=== PATIENT | female | born 1945 | race Caucasian/White ===

== ENCOUNTER 2017-03-25 07:03 | Day surgery (SDC) | payer BC ==
[2017-03-25] MEDS ORDERED: Lactated Ringers 1,000 ML IV SCH (07:45)
[2017-03-25] MEDS ORDERED: Propofol 200 MG/20 ML SDV IV ONE (10:00)
[2017-03-25 11:42] VITALS: BP 93/62
--- NOTE | 2017-03-25 13:14 | OR ---
DATE OF OPERATION: 03/25/2017 SURGEON: Castillo Wyatt MD PREOPERATIVE DIAGNOSIS: Cataract right eye. POSTOPERATIVE DIAGNOSIS: Same. OPERATION PERFORMED: Phacoemulsification of cataract right eye with placement of an Arriaga, model ZCB00, 22.0 diopter, foldable, posterior chamber intraocular lens. QUANTITATIVE SOFTWARE ENGINEER: None. DESCRIPTION OF PROCEDURE: Peribulbar anesthetic was performed using a mixture of 2% lidocaine with Wydase. The patient was prepped and draped in the usual fashion. A 3 mm fornix based conjunctival flap was performed at the 10 o'clock position. Hemostasis was obtained using diathermy, and a 2.8 mm grooved near clear corneal incision was then made. A stab incision was made into the anterior chamber at the 12 o'clock position and a second stab wound incision was made underlying the grooved near clear corneal incision. Viscoat was instilled into the anterior chamber, and a continuous tear capsulotomy was performed. Hydrodissection was accomplished with balanced salt solution, and the nucleus was removed in a divide and conquer fashion. The remaining cortical material was removed with the irrigation and aspiration unit. Viscoat was instilled into the anterior chamber, and an Arriaga, model ZCB00, 22.0 diopter, foldable, posterior chamber intraocular lens was placed into the capsular bag, the haptics being positioned at the 1 and 7 o'clock positions. The residual Viscoat was removed from the anterior chamber and the anterior chamber reformed with balanced salt solution. The wound was checked and noted to be watertight. The conjunctiva was secured in its original position with diathermy. Alphagan and Maxitrol Ointment were then placed into the patient's eye. The patient tolerated the procedure well and it was without complication. Elapsed phacoemulsification time was 37.6 seconds. Postoperative instructions as related to activities as well as medications were reviewed with the patient. The patient was instructed to return to see me on the day following surgery for the first postoperative check. The patient was also instructed to contact me prior to that time if the patient were to have any problems. ADDENDUM: Because of minor discomfort, 0.3 mL of mixture of phenylephrine, lidocaine, and balanced salt solution were instilled into the anterior chamber. This eliminated the discomfort that the patient was having. /[id number] DEG/MODL CC: JASON KIM MD MTDD
== END 2017-03-25 11:37 | disposition home or self-care (01) ==
LOC: FB.SDS 07:03
PROVIDERS: ATTEND Ophthalmology
DX: H26.9 Unspecified cataract (principal); I12.9 Hypertensive chronic kidney disease with stage 1 through stage 4 chronic kidney disease, or unspecified chronic kidney disease; N18.9 Chronic kidney disease, unspecified; K21.9 Gastro-esophageal reflux disease without esophagitis; E78.5 Hyperlipidemia, unspecified; E03.9 Hypothyroidism, unspecified; E66.01 Morbid (severe) obesity due to excess calories; J44.9 Chronic obstructive pulmonary disease, unspecified; Z90.49 Acquired absence of other specified parts of digestive tract; Z90.710 Acquired absence of both cervix and uterus; E83.42 Hypomagnesemia; Z68.44 Body mass index [BMI] 60.0-69.9, adult
CPT/HCPCS: 66984; 82962; A4217; C1780; J2704; J7120

== ENCOUNTER 2019-05-06 14:35 | Inpatient (IN) | payer BC ==
[2019-05-06] MEDS ORDERED: Albuterol/Ipratropium 3.0-0.5 MG/3 ML Neb Soln NEB ONE (15:21)
[2019-05-06] MEDS ORDERED: methylPREDNISolone Sodium Succinate 125 MG/2 ML SDV IVPUSH ONE (15:22)
[2019-05-06] MEDS: cefTRIAXone 1 GM Vial IVPUSH SCH (16:35)
[2019-05-06] MEDS: Sodium Chloride 0.9% 1,000 ML IV SCH (16:35)
[2019-05-06] MEDS ORDERED: Zolpidem 5 MG Tab PO PRN (17:05)
[2019-05-06] MEDS ORDERED: Docusate Sodium 100 MG Cap PO PRN (17:05)
[2019-05-06] MEDS ORDERED: Ondansetron 4 MG/2 ML SDV IV PRN (17:05)
[2019-05-06] MEDS ORDERED: Fluticasone Propionate Nasal Spray 16 GM Bottle NASBOTH PRN (17:17)
--- NOTE | 2019-05-06 17:39 | EDM.PDOC ---
ED HPI GENERAL MEDICAL PROBLEM - General Chief Complaint: Respiratory Problem Stated Complaint: sob Time Seen by Provider: 05/06/19 14:45 Source of Information: Reports: Patient History Limitations: Reports: No Limitations - History of Present Illness INITIAL COMMENTS - FREE TEXT/NARRATIVE: Patient presented to the ED via EMS because of dyspnea, coughing for 1 week which is progressively getting worse. The cough is mostly non-productive, denies having any fever or chills.There is no chest pain , abdominal pain,N/V changes in bowel movements or urinary symptoms. [facility] her surrounding is filthy and she is unkempt. - Related Data Allergies Allergy/AdvReac Type Severity Reaction Status Date / Time No Known Allergies Allergy Verified 05/06/19 15:32 Home Meds: Home Meds Albuterol [Ventolin HFA] 2 puff INH Q4H PRN 03/13/14 [History] Albuterol/Ipratropium [Combivent Respimat] 1 puff INH Q6H PRN 03/13/14 [History] Calcium Carbonate/Vitamin D3 [Oyster Shell Calcium-Vit D Tab] 1 tab PO DAILY 05/15 [History] Ferrous Sulfate [Feosol] 325 mg PO Q48H 03/13/14 [History] Fluticasone/Salmeterol [Advair 250-50] 1 puff INH BID 03/13/14 [History] Furosemide [Lasix] 40 mg PO DAILY 03/13/14 [History] Levothyroxine [Synthroid] 50 mcg PO SUTUWETHSA@0600 03/13/14 [History] Losartan Potassium [Cozaar] 100 mg PO DAILY 03/13/14 [History] Metolazone [Zaroxolyn] 5 mg PO Q48H PRN 03/13/14 [History] Montelukast [Singulair] 10 mg PO DAILY 03/13/14 [History] Multivitamin [Multi-Vitamin Daily] 1 tab PO DAILY 03/13/14 [History] Fonda-3 Fatty Acids [Fonda-3] 1,000 mg PO TID 03/13/14 [History] Potassium Chloride [Klor-Con M20] 20 meq PO BEDTIME 03/13/14 [History] Simvastatin [Zocor] 40 mg PO BEDTIME 03/13/14 [History] carvediloL [Coreg] 25 mg PO BID 03/13/14 [History] hydrALAZINE [Apresoline] 25 mg PO BID 03/13/14 [History] Allopurinol [Zyloprim] 300 mg PO DAILY 01/11/16 [History] Fluticasone Propionate [Flonase] 2 spray NS DAILY PRN 01/11/16 [History] Acetaminophen [Tylenol Extra Strength] 1,000 mg PO Q6H PRN 03/24/17 [History] Potassium Chloride [Klor-Con M20] 40 meq PO ACBREAKFAST 03/24/17 [History] Levothyroxine [Synthroid] 75 mcg PO MOFR@0600 05/06/19 [History] Magnesium Chloride [Slow-Mag] 71.5 mg PO BID 05/06/19 [History] raNITIdine HCl [Zantac] 150 mg PO DAILY 05/06/19 [History] Past Medical History HEENT History: Reports: Cataract, Impaired Vision Cardiovascular History: Reports: High Cholesterol, Hypertension Respiratory History: Reports: Asthma, Sleep Apnea Other Respiratory History: USES CPAP Gastrointestinal History: Reports: GERD Other Genitourinary History: CHRONIC KIDNEY DISEASE [employer]ER [employer] 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 [employer]ER [employer] 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 Musculoskeletal History: Reports: Fracture, Gout, Osteoarthritis, Other (See Below) Other Musculoskeletal History: RIGHT SHOULDER INJURY Neurological History: Reports: None Psychiatric History: Reports: None Endocrine/Metabolic History: Reports: Diabetes, Type II, Hypothyroidism, Other ( See Below) Other Endocrine/Metabolic History: OBESITY Hematologic History: Reports: Iron Deficiency Immunologic History: Reports: None Oncologic (Cancer) History: Reports: None Dermatologic History: Reports: Cellulitis - Infectious Disease History Infectious Disease History: Reports: Chicken Pox, Measles, Mumps - Past Surgical History Head Surgeries/Procedures: Reports: None HEENT Surgical History: Reports: Cataract Surgery Cardiovascular Surgical History: Reports: None Respiratory Surgical History: Reports: None GI Surgical History: Reports: Cholecystectomy, Colonoscopy, EGD Female Surgical History: Reports: Hysterectomy Endocrine Surgical History: Reports: None Neurological Surgical History: Reports: None Musculoskeletal Surgical History: Reports: Shoulder Surgery Other Musculoskeletal Surgeries/Procedures:: RIGHT SHOULDER REPLACEMENT. Oncologic Surgical History: Reports: None Dermatological Surgical History: Reports: None Social & Family History - Family History Family Medical History: Noncontributory Cardiac: Reports: Angina, Heart Failure Respiratory: Reports: COPD, Sleep Apnea : Reports: Renal Calculus Neurological: Reports: Migraines Endocrine/Metabolic: Reports: Hypothyroidism Dermatologic: Reports: Eczema - Caffeine Use Caffeine Use: Reports: Coffee, Tea Caffeine Use Comment: every other day - Living Situation & Occupation Living situation: Reports: , Other Occupation: Employed ED ROS GENERAL - Review of Systems Review Of Systems: See Below Constitutional: Reports: Weakness HEENT: Reports: Ear Discharge Respiratory: Reports: Shortness of Breath, Cough. Denies: Pleuritic Chest Pain Cardiovascular: Reports: Dyspnea on Exertion Endocrine: Reports: No Symptoms GI/Abdominal: Reports: No Symptoms : Reports: No Symptoms, Urinary Retention Skin: Reports: Erythema Neurological: Reports: Weakness ED EXAM, GENERAL - Physical Exam Exam: See Below Exam Limited By: No Limitations General Appearance: Alert, No Apparent Distress Eye Exam: Bilateral Eye: PERRL, Other (bilateral comjunctival injection and crsuty greenish eye discharge) Ear Exam: Bilateral Ear: TM normal Nose: Normal Inspection, Normal Mucosa Throat/Mouth: Normal Inspection, Normal Lips, Normal Teeth Head: Atraumatic, Normocephalic Neck: Normal Inspection, Supple, Non-Tender, Full Range of Motion Respiratory/Chest: Decreased Breath Sounds, Rhonchi, Wheezing. No: Crackles Cardiovascular: Normal Peripheral Pulses, Regular Rate, Rhythm, No Edema, No Gallop GI/Abdominal: Normal Bowel Sounds, Soft, Non-Tender, No Organomegaly, No Distention, No Abnormal Bruit Extremities: Normal Inspection, Normal Range of Motion, Non-Tender, No Pedal Edema, Slow Capillary Refill Neurological: Alert, Oriented, CN II-XII Intact, Normal Cognition Skin Exam: Warm, Erythema (RUE and Right thigh) Course - Vital Signs Text/Narrative:: Labs/EKG/CXR discussed with patient and family members with full understanding EKG-no acute changes CXR-see result Troponin,BNP,lactic acid are elevated most likely from the elevated creatinine and dehydration Recheck trop and BNP Gentle IVF hydration Rocephin IV which should cover her UTI,Pneumonia and cellulitis Case discussed with Dr Garcia Last Recorded V/S: Last Vital Signs Temp 37.3 C 05/06/19 14:35 Pulse Resp BP Pulse Ox 98 05/06/19 14:35 - Orders/Labs/Meds Orders: Active Orders 24 hr Category Date Time Status EKG Documentation Completion [RC] ASDIRECTED Care 05/06/19 15:21 Active RT Aerosol Therapy [RC] ASDIRECTED Care 05/06/19 15:21 Active Chest 1V Frontal [CR] Stat Exams 05/06/19 15:20 Taken CULTURE BLOOD [BC] Urgent Lab 05/06/19 14:59 Received CULTURE BLOOD [BC] Urgent Lab 05/06/19 15:19 Ordered CULTURE URINE [RM] Stat Lab 05/06/19 16:19 Received Sodium Chloride 0.9% [Normal Saline] 1,000 ml Med 05/06/19 16:30 Active IV ASDIRECTED Sodium Chloride 0.9% [Saline Flush] Med 05/06/19 15:17 Active 10 ml FLUSH ASDIRECTED PRN cefTRIAXone [Rocephin] Med 05/06/19 16:45 Active 1 gm IVPUSH Q24H Blood Culture x2 Reflex Set [OM.PC] Urgent Oth 05/06/19 15:17 Ordered Saline Lock Insert [OM.PC] Routine Oth 05/06/19 15:17 Ordered EKG 12 Lead [EK] Routine Ther 05/06/19 15:21 Ordered Medication Orders Acetaminophen (Tylenol Extra Strength) 1,000 mg PO Q6H PRN PRN Reason: Pain Albuterol (Proventil Neb Soln) 2.5 mg NEB Q2H PRN PRN Reason: Shortness Of Breath/wheezing Albuterol/Ipratropium (Duoneb 3.0-0.5 Mg/3 Ml) 3 ml NEB QIDRT JESSICA Carvedilol (Coreg) 25 mg PO BID [facility] Ceftriaxone Sodium (Rocephin) 1 gm IVPUSH Q24H [facility] Last Admin: 05/06/19 16:35 Dose: 1 gm Docusate Sodium (Colace) 100 mg PO BID PRN PRN Reason: Constipation Enoxaparin Sodium (Lovenox) 30 mg SUBCUT Q24H [facility] Ferrous Sulfate (Ferrous Sulfate) 325 mg PO Q48H [facility] Fluticasone Propionate (Flonase) gm NASBOTH DAILY PRN PRN Reason: Rhinitis Hydralazine HCl (Apresoline) 25 mg PO BID [facility] Sodium Chloride (Normal Saline) 1,000 mls @ 125 drops/hr IV ASDIRECTED [facility] Last Admin: 05/06/19 16:35 Dose: 125 drops/hr Levothyroxine Sodium (Synthroid) 50 mcg PO SUTUWETHSA@0600 JESSICA Levothyroxine Sodium (Synthroid) 75 mcg PO MOFR@0600 [facility] Montelukast Sodium (Singulair) 10 mg PO DAILY [facility] Multivitamins/Minerals/Vitamin C (Tab-A-Karli) 1 tab PO DAILY JESSICA Non-Formulary Medication (Calcium Carbonate/Vitamin D3 [Oyster Shell Calcium- Vit D Tab]) 1 tab PO DAILY JESSICA Non-Formulary Medication (Fluticasone/Salmeterol [Advair 250-50]) 1 puff INH BID JESSICA Non-Formulary Medication (Magnesium Chloride [Slow-Mag]) 71.5 mg PO BID JESSICA Non-Formulary Medication (Fonda-3 Fatty Acids [Fonda-3]) 1,000 mg PO TID JESSICA Non-Formulary Medication (Ranitidine Hcl [Zantac]) 150 mg PO DAILY [facility] Ondansetron HCl (Zofran) 4 mg IV Q4H PRN PRN Reason: Nausea/Vomiting Potassium Chloride (Klor-Con M20) 20 meq PO BEDTIME JESSICA Potassium Chloride (Klor-Con M20) 40 meq PO ACBREAKFAST JESSICA Simvastatin (Zocor) 40 mg PO BEDTIME [facility] Sodium Chloride (Saline Flush) 10 ml FLUSH ASDIRECTED PRN PRN Reason: Keep Vein Open Tobramycin (Tobramycin 0.3% Ophth Soln) 0 ml EYEBOTH QID JESSICA Zolpidem Tartrate (Ambien) 5 mg PO BEDTIME PRN PRN Reason: Sleep Labs: Laboratory Tests 05/06/19 05/06/19 05/06/19 Range/Units 14:59 14:59 14:59 WBC 13.8 H (4.5-12.0) X10-3/uL RBC 4.16 (3.23-5.20) x10(6)uL Hgb 12.6 (11.5-15.5) g/dL Hct 39.0 (30.0-51.3) % MCV 93.6 (80-96) fL MCH 30.3 (27.7-33.6) pg MCHC 32.4 (32.2-35.4) g/dL RDW 14.9 (11.5-15.5) % Plt Count 239 (125-369) X10(3)uL MPV 10.0 (7.4-10.4) fL Add Manual Diff Yes Neutrophils % (Manual) 86 H (46-82) % Band Neutrophils % 2 (0-6) % Lymphocytes % (Manual) 6 L (13-37) % Monocytes % (Manual) 6 (4-12) % Sodium 138 (135-145) mmol/L Potassium 3.2 L (3.5-5.3) mmol/L Chloride 99 L D (100-110) mmol/L Carbon Dioxide 30 (21-32) mmol/L BUN 67 H D (7-18) mg/dL Creatinine 3.0 H* (0.55-1.02) mg/dL Est Cr Clr Drug Dosing TNP Estimated GFR (MDRD) 15 L (>60) BUN/Creatinine Ratio 22.3 H (9-20) Glucose 161 H (80-116) mg/dL Lactic Acid (0.4-2.2) mmol/L Calcium 8.3 L (8.6-10.2) mg/dL Total Bilirubin 1.2 (0.1-1.3) mg/dL AST 197 H* (5-25) IU/L ALT 92 H (12-36) U/L Alkaline Phosphatase 156 H (56-112) IU/L Troponin I 0.607 H* (<0.017-0.056) ng/mL NT-Pro-B Natriuret Pep 83638 H* (<=450) pg/mL Total Protein 6.7 (6.0-8.0) g/dL Albumin 2.5 L (3.2-4.6) g/dL Globulin 4.2 g/dL Albumin/Globulin Ratio 0.6 Urine Color (YELLOW) Urine Appearance (CLEAR) Urine pH (5.0-6.5) Ur Specific Thayer (1.010-1.025) Urine Protein (NEGATIVE) mg/dL Urine Glucose (UA) (NORMAL) mg/dL Urine Ketones (NEGATIVE) mg/dL Urine Occult Blood (NEGATIVE) Urine Nitrite (NEGATIVE) Urine Bilirubin (NEGATIVE) Urine Urobilinogen (NEGATIVE) mg/dL Ur Leukocyte Esterase (NEGATIVE) Urine RBC (0-5) Urine WBC (0-5) Ur Squamous Epith Cells (NS,R,O) Urine Bacteria (NS) 05/06/19 05/06/19 Range/Units 14:59 16:19 WBC (4.5-12.0) X10-3/uL RBC (3.23-5.20) x10(6)uL Hgb (11.5-15.5) g/dL Hct (30.0-51.3) % MCV (80-96) fL MCH (27.7-33.6) pg MCHC (32.2-35.4) g/dL RDW (11.5-15.5) % Plt Count (125-369) X10(3)uL MPV (7.4-10.4) fL Add Manual Diff Neutrophils % (Manual) (46-82) % Band Neutrophils % (0-6) % Lymphocytes % (Manual) (13-37) % Monocytes % (Manual) (4-12) % Sodium (135-145) mmol/L Potassium (3.5-5.3) mmol/L Chloride (100-110) mmol/L Carbon Dioxide (21-32) mmol/L BUN (7-18) mg/dL Creatinine (0.55-1.02) mg/dL Est Cr Clr Drug Dosing Estimated GFR (MDRD) (>60) BUN/Creatinine Ratio (9-20) Glucose (80-116) mg/dL Lactic Acid 2.4 H (0.4-2.2) mmol/L Calcium (8.6-10.2) mg/dL Total Bilirubin (0.1-1.3) mg/dL AST (5-25) IU/L ALT (12-36) U/L Alkaline Phosphatase (56-112) IU/L Troponin I (<0.017-0.056) ng/mL NT-Pro-B Natriuret Pep (<=450) pg/mL Total Protein (6.0-8.0) g/dL Albumin (3.2-4.6) g/dL Globulin g/dL Albumin/Globulin Ratio Urine Color Emerson (YELLOW) Urine Appearance Slightly cloudy (CLEAR) Urine pH 5.0 (5.0-6.5) Ur Specific Thayer 1.020 (1.010-1.025) Urine Protein 30 H (NEGATIVE) mg/dL Urine Glucose (UA) Normal (NORMAL) mg/dL Urine Ketones 15 H (NEGATIVE) mg/dL Urine Occult Blood Large H (NEGATIVE) Urine Nitrite Negative (NEGATIVE) Urine Bilirubin Small H (NEGATIVE) Urine Urobilinogen 4 H (NEGATIVE) mg/dL Ur Leukocyte Esterase Large H (NEGATIVE) Urine RBC 30-40 H (0-5) Urine WBC 30-40 H (0-5) Ur Squamous Epith Cells Few H (NS,R,O) Urine Bacteria Many H (NS) Meds: Medications Generic Name Dose Route Start Last Admin Trade Name Freq PRN Reason Stop Dose Admin Acetaminophen 1,000 mg 05/06/19 17:17 Tylenol Extra Strength PO Q6H PRN Pain Albuterol 2.5 mg 05/06/19 17:05 Proventil Neb Soln NEB Q2H PRN Shortness Of Breath/wheezing Albuterol/Ipratropium 3 ml 05/06/19 21:00 Duoneb 3.0-0.5 Mg/3 Ml NEB QIDRT JESSICA Carvedilol 25 mg 05/06/19 21:00 Coreg PO BID [facility] Ceftriaxone Sodium 1 gm 05/06/19 16:45 05/06/19 16:35 Rocephin IVPUSH 1 gm Q24H JESSICA Administration Docusate Sodium 100 mg 05/06/19 17:05 Colace PO BID PRN Constipation Enoxaparin Sodium 30 mg 05/06/19 18:00 Lovenox SUBCUT Q24H [facility] Ferrous Sulfate 325 mg 05/06/19 17:30 Ferrous Sulfate PO Q48H [facility] Fluticasone Propionate gm 05/06/19 17:17 Flonase NASBOTH DAILY PRN Rhinitis Hydralazine HCl 25 mg 05/06/19 21:00 Apresoline PO BID [facility] Sodium Chloride 1,000 mls @ 125 drops/hr 05/06/19 16:30 05/06/19 16:35 Normal Saline IV 125 drops/hr ASDIRECTED JESSICA Administration Levothyroxine Sodium 50 mcg 05/08/19 06:00 Synthroid PO SUTUWETHSA@0600 JESSICA Levothyroxine Sodium 75 mcg 05/07/19 06:00 Synthroid PO MOFR@0600 JESSICA Montelukast Sodium 10 mg 05/07/19 09:00 Singulair PO DAILY [facility] Multivitamins/Minerals/Vitamin C 1 tab 05/07/19 09:00 Tab-A-Karli PO DAILY JESSICA Non-Formulary Medication 1 tab 05/06/19 17:30 Calcium Carbonate/Vitamin D3 [Oyster Shell Calcium-Vit D Tab] PO DAILY JESSICA Non-Formulary Medication 1 puff 05/06/19 21:00 Fluticasone/Salmeterol [Advair 250-50] INH BID JESSICA Non-Formulary Medication 71.5 mg 05/06/19 21:00 Magnesium Chloride [Slow-Mag] PO BID JESSICA Non-Formulary Medication 1,000 mg 05/06/19 21:00 Fonda-3 Fatty Acids [Fonda-3] PO TID JESSICA Non-Formulary Medication 150 mg 05/07/19 09:00 Ranitidine Hcl [Zantac] PO DAILY JESSICA Ondansetron HCl 4 mg 05/06/19 17:05 Zofran IV Q4H PRN Nausea/Vomiting Potassium Chloride 20 meq 05/06/19 21:00 Klor-Con M20 PO BEDTIME JESSICA Potassium Chloride 40 meq 05/07/19 07:30 Klor-Con M20 PO ACBREAKFAST JESSICA Simvastatin 40 mg 05/06/19 21:00 Zocor PO BEDTIME JESSICA Sodium Chloride 10 ml 05/06/19 15:17 Saline Flush FLUSH ASDIRECTED PRN Keep Vein Open Tobramycin 0 ml 05/06/19 21:00 Tobramycin 0.3% Ophth Soln EYEBOTH QID JESSICA Zolpidem Tartrate 5 mg 05/06/19 17:05 Ambien PO BEDTIME PRN Sleep Discontinued Medications Generic Name Dose Route Start Last Admin Trade Name Freq PRN Reason Stop Dose Admin Albuterol/Ipratropium 6 ml 05/06/19 15:21 05/06/19 15:36 Duoneb 3.0-0.5 Mg/3 Ml NEB 05/06/19 15:22 6 ml ONETIME ONE Administration Methylprednisolone Sodium Succinate 125 mg 05/06/19 15:22 05/06/19 15:36 Solu-Medrol IVPUSH 05/06/19 15:23 125 mg ONETIME ONE Administration Departure - Departure Time of Disposition: 14:35 Disposition: Admitted As Inpatient 65 Condition: Fair Clinical Impression: Dehydration, VENKAT (acute kidney injury), UTI (urinary tract infection), Pneumonia, COPD exacerbation, Hypokalemia, Elevated troponin - Discharge Information - My Orders Last 24 Hours: My Active Orders 05/06/19 14:59 CULTURE BLOOD [BC] Urgent 05/06/19 15:17 Sodium Chloride 0.9% [Saline Flush] 10 ml FLUSH ASDIRECTED PRN Blood Culture x2 Reflex Set [OM.PC] Urgent Saline Lock Insert [OM.PC] Routine 05/06/19 15:19 CULTURE BLOOD [BC] Urgent 05/06/19 15:20 Chest 1V Frontal [CR] Stat 05/06/19 15:21 EKG Documentation Completion [RC] ASDIRECTED RT Aerosol Therapy [RC] ASDIRECTED EKG 12 Lead [EK] Routine 05/06/19 16:19 CULTURE URINE [RM] Stat 05/06/19 16:30 Sodium Chloride 0.9% [Normal Saline] 1,000 ml IV ASDIRECTED 05/06/19 16:45 cefTRIAXone [Rocephin] 1 gm IVPUSH Q24H - Assessment/Plan Last 24 Hours: My Active Orders 05/06/19 14:59 CULTURE BLOOD [BC] Urgent 05/06/19 15:17 Sodium Chloride 0.9% [Saline Flush] 10 ml FLUSH ASDIRECTED PRN Blood Culture x2 Reflex Set [OM.PC] Urgent Saline Lock Insert [OM.PC] Routine 05/06/19 15:19 CULTURE BLOOD [BC] Urgent 05/06/19 15:20 Chest 1V Frontal [CR] Stat 05/06/19 15:21 EKG Documentation Completion [RC] ASDIRECTED RT Aerosol Therapy [RC] ASDIRECTED EKG 12 Lead [EK] Routine 05/06/19 16:19 CULTURE URINE [RM] Stat 05/06/19 16:30 Sodium Chloride 0.9% [Normal Saline] 1,000 ml IV ASDIRECTED 05/06/19 16:45 cefTRIAXone [Rocephin] 1 gm IVPUSH Q24H
[2019-05-06] MEDS ORDERED: Calcium Carbonate 500 MG Tab.Chew PO SCH (17:45)
[2019-05-06] MEDS ORDERED: Enoxaparin 30 MG/0.3 ML Syringe SUBCUT SCH (18:00)
[2019-05-06] MEDS ORDERED: Azithromycin 500 MG in Sodium Chloride 0.9% 250 ML IV ONE (18:46)
--- NOTE | 2019-05-06 18:55 | PCM.HP.2 ---
H&P History of Present Illness - General Date of Service: 05/06/19 Admit Problem/Dx: Admission Diagnosis/Problem Admission Diagnosis/Problem COPD with acute lower respiratory infection Source of Information: Patient, Family History Limitations: Reports: No Limitations - History of Present Illness Initial Comments - Free Text/Narative: This is a 74-year-old female patient that lives with her son. She's had one week history of coughing is progressive and became more short of breath. The cough is mostly nonproductive. She denies fevers or chills or chest pain. No diarrhea or dysuria, pyuria or hematuria. She also week she that she could got a bed. Her sons had it carotid bed and call him spring here. She has history of asthma, peripheral edema. She denies history of smoking but did live with a smoker. - Related Data Allergies/Adverse Reactions: Allergies Allergy/AdvReac Type Severity Reaction Status Date / Time No Known Allergies Allergy Verified 05/06/19 15:32 Home Medications: Home Meds Albuterol [Ventolin HFA] 2 puff INH Q4H PRN 03/13/14 [History] Albuterol/Ipratropium [Combivent Respimat] 1 puff INH Q6H PRN 03/13/14 [History] Calcium Carbonate/Vitamin D3 [Oyster Shell Calcium-Vit D Tab] 1 tab PO DAILY 05/15 [History] Ferrous Sulfate [Feosol] 325 mg PO Q48H 03/13/14 [History] Fluticasone/Salmeterol [Advair 250-50] 1 puff INH BID 03/13/14 [History] Furosemide [Lasix] 40 mg PO DAILY 03/13/14 [History] Levothyroxine [Synthroid] 50 mcg PO SUTUWETHSA@0600 03/13/14 [History] Losartan Potassium [Cozaar] 100 mg PO DAILY 03/13/14 [History] Metolazone [Zaroxolyn] 5 mg PO Q48H PRN 03/13/14 [History] Montelukast [Singulair] 10 mg PO DAILY 03/13/14 [History] Multivitamin [Multi-Vitamin Daily] 1 tab PO DAILY 03/13/14 [History] Ollie-3 Fatty Acids [Ollie-3] 1,000 mg PO TID 03/13/14 [History] Potassium Chloride [Klor-Con M20] 20 meq PO BEDTIME 03/13/14 [History] Simvastatin [Zocor] 40 mg PO BEDTIME 03/13/14 [History] carvediloL [Coreg] 25 mg PO BID 03/13/14 [History] hydrALAZINE [Apresoline] 25 mg PO BID 03/13/14 [History] Allopurinol [Zyloprim] 300 mg PO DAILY 01/11/16 [History] Fluticasone Propionate [Flonase] 2 spray NS DAILY PRN 01/11/16 [History] Acetaminophen [Tylenol Extra Strength] 1,000 mg PO Q6H PRN 03/24/17 [History] Potassium Chloride [Klor-Con M20] 40 meq PO ACBREAKFAST 03/24/17 [History] Levothyroxine [Synthroid] 75 mcg PO MOFR@0600 05/06/19 [History] Magnesium Chloride [Slow-Mag] 71.5 mg PO BID 05/06/19 [History] raNITIdine HCl [Zantac] 150 mg PO DAILY 05/06/19 [History] Past Medical History HEENT History: Reports: Cataract, Impaired Vision Cardiovascular History: Reports: High Cholesterol, Hypertension Respiratory History: Reports: Asthma, Sleep Apnea Other Respiratory History: USES CPAP Gastrointestinal History: Reports: GERD Other Genitourinary History: CHRONIC KIDNEY DISEASE 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: Other OB/BYN History: VII PARA VII Musculoskeletal History: Reports: Fracture, Gout, Osteoarthritis, Other (See Below) Other Musculoskeletal History: RIGHT SHOULDER INJURY Neurological History: Reports: None Psychiatric History: Reports: None Endocrine/Metabolic History: Reports: Diabetes, Type II, Hypothyroidism, Other ( See Below) Other Endocrine/Metabolic History: OBESITY Hematologic History: Reports: Iron Deficiency Immunologic History: Reports: None Oncologic (Cancer) History: Reports: None Dermatologic History: Reports: Cellulitis - Infectious Disease History Infectious Disease History: Reports: Chicken Pox, Measles, Mumps - Past Surgical History Head Surgeries/Procedures: Reports: None HEENT Surgical History: Reports: Cataract Surgery Cardiovascular Surgical History: Reports: None Respiratory Surgical History: Reports: None GI Surgical History: Reports: Cholecystectomy, Colonoscopy, EGD Female Surgical History: Reports: Hysterectomy Endocrine Surgical History: Reports: None Neurological Surgical History: Reports: None Musculoskeletal Surgical History: Reports: Shoulder Surgery Other Musculoskeletal Surgeries/Procedures:: RIGHT SHOULDER REPLACEMENT. Oncologic Surgical History: Reports: None Dermatological Surgical History: Reports: None Social & Family History - Family History Family Medical History: Noncontributory Cardiac: Reports: Angina, Heart Failure Respiratory: Reports: COPD, Sleep Apnea : Reports: Renal Calculus Neurological: Reports: Migraines Endocrine/Metabolic: Reports: Hypothyroidism Dermatologic: Reports: Eczema - Caffeine Use Caffeine Use: Reports: Coffee, Tea Caffeine Use Comment: every other day - Living Situation & Occupation Living situation: Reports: , Other Occupation: Employed H&P Review of Systems - Review of Systems: Review Of Systems: See Below General: Reports: Weakness. Denies: Fever, Chills HEENT: Reports: No Symptoms Pulmonary: Reports: Shortness of Breath, Wheezing, Cough Cardiovascular: Denies: Chest Pain, Edema Gastrointestinal: Reports: No Symptoms Genitourinary: Reports: No Symptoms Musculoskeletal: Reports: No Symptoms Skin: Reports: Rash Psychiatric: Reports: No Symptoms Neurological: Reports: No Symptoms Hematologic/Lymphatic: Reports: No Symptoms Immunologic: Reports: No Symptoms Exam - Exam Exam: See Below - Vital Signs Vital Signs: Last Vital Signs Temp 99.2 F 05/06/19 14:35 Pulse Resp BP Pulse Ox 92 L 05/06/19 17:25 Weight: 345 lb - Exam General: Alert, Oriented, Cooperative HEENT: Hearing Intact, Mucosa Moist & [place], Posterior Pharynx Clear, TMs Clear Neck: Supple, Trachea Midline Lungs: Normal Respiratory Effort, Crackles, Wheezing Cardiovascular: Regular Rate, Regular Rhythm. No: Systolic Murmur GI/Abdominal Exam: Normal Bowel Sounds, Soft, Non-Tender, No Distention Extremities: Normal Inspection, No Pedal Edema Skin: Rash (Right upper extremity with warm bullae) Neuro Extensive - Mental Status: Alert, Oriented x3, Normal Cognition Psychiatric: Alert, Normal Affect, Normal Mood - Patient Data Lab Results Last 24 hrs: Laboratory Results - last 24 hr 05/06/19 05/06/19 05/06/19 Range/Units 14:59 14:59 14:59 WBC 13.8 H (4.5-12.0) X10-3/uL RBC 4.16 (3.23-5.20) x10(6)uL Hgb 12.6 (11.5-15.5) g/dL Hct 39.0 (30.0-51.3) % MCV 93.6 (80-96) fL MCH 30.3 (27.7-33.6) pg MCHC 32.4 (32.2-35.4) g/dL RDW 14.9 (11.5-15.5) % Plt Count 239 (125-369) X10(3)uL MPV 10.0 (7.4-10.4) fL Add Manual Diff Yes Neutrophils % (Manual) 86 H (46-82) % Band Neutrophils % 2 (0-6) % Lymphocytes % (Manual) 6 L (13-37) % Monocytes % (Manual) 6 (4-12) % Sodium 138 (135-145) mmol/L Potassium 3.2 L (3.5-5.3) mmol/L Chloride 99 L D (100-110) mmol/L Carbon Dioxide 30 (21-32) mmol/L BUN 67 H D (7-18) mg/dL Creatinine 3.0 H* (0.55-1.02) mg/dL Est Cr Clr Drug Dosing TNP Estimated GFR (MDRD) 15 L (>60) BUN/Creatinine Ratio 22.3 H (9-20) Glucose 161 H (80-116) mg/dL Lactic Acid (0.4-2.2) mmol/L Calcium 8.3 L (8.6-10.2) mg/dL Total Bilirubin 1.2 (0.1-1.3) mg/dL AST 197 H* (5-25) IU/L ALT 92 H (12-36) U/L Alkaline Phosphatase 156 H (56-112) IU/L Troponin I 0.607 H* (<0.017-0.056) ng/mL NT-Pro-B Natriuret Pep 18940 H* (<=450) pg/mL Total Protein 6.7 (6.0-8.0) g/dL Albumin 2.5 L (3.2-4.6) g/dL Globulin 4.2 g/dL Albumin/Globulin Ratio 0.6 Urine Color (YELLOW) Urine Appearance (CLEAR) Urine pH (5.0-6.5) Ur Specific [place] (1.010-1.025) Urine Protein (NEGATIVE) mg/dL Urine Glucose (UA) (NORMAL) mg/dL Urine Ketones (NEGATIVE) mg/dL Urine Occult Blood (NEGATIVE) Urine Nitrite (NEGATIVE) Urine Bilirubin (NEGATIVE) Urine Urobilinogen (NEGATIVE) mg/dL Ur Leukocyte Esterase (NEGATIVE) Urine RBC (0-5) Urine WBC (0-5) Ur Squamous Epith Cells (NS,R,O) Urine Bacteria (NS) 05/06/19 05/06/19 Range/Units 14:59 16:19 WBC (4.5-12.0) X10-3/uL RBC (3.23-5.20) x10(6)uL Hgb (11.5-15.5) g/dL Hct (30.0-51.3) % MCV (80-96) fL MCH (27.7-33.6) pg MCHC (32.2-35.4) g/dL RDW (11.5-15.5) % Plt Count (125-369) X10(3)uL MPV (7.4-10.4) fL Add Manual Diff Neutrophils % (Manual) (46-82) % Band Neutrophils % (0-6) % Lymphocytes % (Manual) (13-37) % Monocytes % (Manual) (4-12) % Sodium (135-145) mmol/L Potassium (3.5-5.3) mmol/L Chloride (100-110) mmol/L Carbon Dioxide (21-32) mmol/L BUN (7-18) mg/dL Creatinine (0.55-1.02) mg/dL Est Cr Clr Drug Dosing Estimated GFR (MDRD) (>60) BUN/Creatinine Ratio (9-20) Glucose (80-116) mg/dL Lactic Acid 2.4 H (0.4-2.2) mmol/L Calcium (8.6-10.2) mg/dL Total Bilirubin (0.1-1.3) mg/dL AST (5-25) IU/L ALT (12-36) U/L Alkaline Phosphatase (56-112) IU/L Troponin I (<0.017-0.056) ng/mL NT-Pro-B Natriuret Pep (<=450) pg/mL Total Protein (6.0-8.0) g/dL Albumin (3.2-4.6) g/dL Globulin g/dL Albumin/Globulin Ratio Urine Color [place] (YELLOW) Urine Appearance Slightly cloudy (CLEAR) Urine pH 5.0 (5.0-6.5) Ur Specific [place] 1.020 (1.010-1.025) Urine Protein 30 H (NEGATIVE) mg/dL Urine Glucose (UA) Normal (NORMAL) mg/dL Urine Ketones 15 H (NEGATIVE) mg/dL Urine Occult Blood Large H (NEGATIVE) Urine Nitrite Negative (NEGATIVE) Urine Bilirubin Small H (NEGATIVE) Urine Urobilinogen 4 H (NEGATIVE) mg/dL Ur Leukocyte Esterase Large H (NEGATIVE) Urine RBC 30-40 H (0-5) Urine WBC 30-40 H (0-5) Ur Squamous Epith Cells Few H (NS,R,O) Urine Bacteria Many H (NS) Result Diagrams: 05/06/19 14:59 05/06/19 14:59 - Problem List (1) Rash SNOMED Code(s): 942924075 ICD Code: R21 - RASH AND OTHER NONSPECIFIC SKIN ERUPTION Status: Acute Current Visit: Yes (2) Palliative care status SNOMED Code(s): 363717964 ICD Code: Z51.5 - ENCOUNTER FOR PALLIATIVE CARE Status: Acute Current Visit: Yes (3) VENKAT (acute kidney injury) SNOMED Code(s): 23585069, 94149515 ICD Code: N17.9 - ACUTE KIDNEY FAILURE, UNSPECIFIED Status: Acute Current Visit: Yes (4) COPD exacerbation SNOMED Code(s): 474600252 ICD Code: J44.1 - CHRONIC OBSTRUCTIVE PULMONARY DISEASE W (ACUTE) EXACERBATION Status: Acute Current Visit: Yes (5) Dehydration SNOMED Code(s): 70042344 ICD Code: E86.0 - DEHYDRATION Status: Acute Current Visit: Yes (6) Elevated troponin SNOMED Code(s): 921779382, 636357374, 400673951 ICD Code: R79.89 - OTHER SPECIFIED ABNORMAL FINDINGS OF BLOOD CHEMISTRY Status: Acute Current Visit: Yes (7) Hypokalemia SNOMED Code(s): 70016520 ICD Code: E87.6 - HYPOKALEMIA Status: Acute Current Visit: Yes (8) Pneumonia SNOMED Code(s): 858120062 ICD Code: J18.9 - PNEUMONIA, UNSPECIFIED ORGANISM Status: Acute Current Visit: Yes (9) UTI (urinary tract infection) SNOMED Code(s): 05008437 ICD Code: N39.0 - URINARY TRACT INFECTION, SITE NOT SPECIFIED Status: Acute Current Visit: Yes Problem List Initiated/Reviewed/Updated: Yes Orders Last 24hrs: Active Orders 24 hr Category Date Time Status Patient Status [ADT] Routine ADT 05/06/19 17:05 Active EKG Documentation Completion [RC] ASDIRECTED Care 05/06/19 15:21 Active Height and Weight [RC] DAILY Care 05/06/19 17:05 Active Intake and Output [RC] QSHIFT Care 05/06/19 17:09 Active Oxygen Therapy [RC] PRN Care 05/06/19 17:05 Active Pulse Oximetry [RC] CONTINUOUS Care 05/06/19 17:09 Active RT Aerosol Therapy [RC] ASDIRECTED Care 05/06/19 15:21 Active RT Aerosol Therapy [RC] ASDIRECTED Care 05/06/19 17:14 Active Up With Assistance [RC] ASDIRECTED Care 05/06/19 17:05 Active VTE/DVT Education [RC] Per Unit Routine Care 05/06/19 17:05 Active Vital Signs [RC] Q4H Care 05/06/19 17:05 Active Consult to Occupational Therapy [OT Evaluation and Cons 05/06/19 18:48 Ordered Treatment] [CONS] Routine Consult to Physical Therapy [PT Evaluation and Cons 05/06/19 18:48 Ordered Treatment] [CONS] Routine Heart Healthy Diet [DIET] Diet 05/06/19 Dinner Ordered Chest 1V Frontal [CR] Stat Exams 05/06/19 15:20 Taken BASIC METABOLIC PANEL,BMP [CHEM] AM Lab 05/07/19 05:11 Ordered CBC W/O DIFF,HEMOGRAM [HEME] AM Lab 05/07/19 05:11 Ordered CULTURE BLOOD [BC] Urgent Lab 05/06/19 14:59 Received CULTURE BLOOD [BC] Urgent Lab 05/06/19 15:19 Ordered CULTURE URINE [RM] Stat Lab 05/06/19 16:19 Received PRO B-TYPE NATRIUR PEPT,BNPPRO [CHEM] Routine Lab 05/07/19 05:30 Ordered TROPONIN I [CHEM] Stat Lab 05/06/19 23:00 Ordered TROPONIN I [CHEM] Stat Lab 05/07/19 05:30 Ordered Acetaminophen [Tylenol Extra Strength] Med 05/06/19 17:17 Active 1,000 mg PO Q6H PRN Albuterol [Proventil Neb Soln] Med 05/06/19 17:05 Active 2.5 mg NEB Q2H PRN Albuterol/Ipratropium [DuoNeb 3.0-0.5 MG/3 ML] Med 05/06/19 21:00 Active 3 ml NEB QIDRT Azithromycin [Zithromax] 250 mg Med 05/06/19 19:00 Ordered Sodium Chloride 0.9% [Normal Saline] 250 ml IV Q24H Azithromycin [Zithromax] 500 mg Med 05/06/19 18:46 Ordered Sodium Chloride 0.9% [Normal Saline (AdvBag)] 250 ml IV ONETIME Calcium Carbonate [Tums] Med 05/06/19 17:45 Active 500 mg PO DAILY Docusate Sodium [Colace] Med 05/06/19 17:05 Active 100 mg PO BID PRN Enoxaparin [Lovenox] Med 05/06/19 18:00 Active 30 mg SUBCUT Q24H Famotidine [Pepcid] Med 05/07/19 09:00 Active 20 mg PO DAILY Ferrous Sulfate Med 05/06/19 17:30 Pending 325 mg PO Q48H Fish Oil/Ollie-3 Fatty Acids [Fish Oil] Med 05/06/19 21:00 Active 1 gm PO TID Fluticasone Propionate [Flonase] Med 05/06/19 17:17 Active 0 gm NASBOTH DAILY PRN Levothyroxine [Synthroid] Med 05/08/19 06:00 Active 50 mcg PO SUTUWETHSA@0600 Levothyroxine [Synthroid] Med 05/07/19 06:00 Active 75 mcg PO MOFR@0600 Magnesium Chloride [Slow-Mag] Med 05/06/19 21:00 Pending 71.5 mg PO BID Mometasone/Formoterol [Dulera 200-5 MCG] Med 05/06/19 21:00 Active 0 puff IH BID Montelukast [Singulair] Med 05/07/19 09:00 Active 10 mg PO DAILY Multivitamins [Tab-A-Karli] Med 05/07/19 09:00 Active 1 tab PO DAILY Ondansetron [Zofran] Med 05/06/19 17:05 Active 4 mg IV Q4H PRN Potassium Chloride [Klor-Con M20] Med 05/06/19 21:00 Active 20 meq PO BEDTIME Potassium Chloride [Klor-Con M20] Med 05/07/19 07:30 Active 40 meq PO ACBREAKFAST Simvastatin [Zocor] Med 05/06/19 21:00 Active 40 mg PO BEDTIME Sodium Chloride 0.9% [Normal Saline] 1,000 ml Med 05/06/19 16:30 Active IV ASDIRECTED Sodium Chloride 0.9% [Saline Flush] Med 05/06/19 15:17 Active 10 ml FLUSH ASDIRECTED PRN Tobramycin 0.3% [Tobramycin 0.3% Ophth Soln] Med 05/06/19 21:00 Active See Dose Instructions EYEBOTH QID Zolpidem [Ambien] Med 05/06/19 17:05 Active 5 mg PO BEDTIME PRN carvediloL [Coreg] Med 05/06/19 21:00 Active 25 mg PO BID cefTRIAXone [Rocephin] Med 05/06/19 16:45 Active 1 gm IVPUSH Q24H hydrALAZINE [Apresoline] Med 05/06/19 21:00 Active 25 mg PO BID Blood Culture x2 Reflex Set [OM.PC] Urgent Oth 05/06/19 15:17 Ordered Saline Lock Insert [OM.PC] Routine Oth 05/06/19 15:17 Ordered Resuscitation Status Routine Resus Stat 05/06/19 17:05 Ordered EKG 12 Lead [EK] Routine Ther 05/06/19 15:21 Ordered Medication Orders Acetaminophen (Tylenol Extra Strength) 1,000 mg PO Q6H PRN PRN Reason: Pain Albuterol (Proventil Neb Soln) 2.5 mg NEB Q2H PRN PRN Reason: Shortness Of Breath/wheezing Albuterol/Ipratropium (Duoneb 3.0-0.5 Mg/3 Ml) 3 ml NEB QIDRT [facility] Calcium Carbonate/Glycine (Tums) 500 mg PO DAILY [facility] Last Admin: 05/06/19 18:32 Dose: 500 mg Carvedilol (Coreg) 25 mg PO BID [facility] Ceftriaxone Sodium (Rocephin) 1 gm IVPUSH Q24H [facility] Last Admin: 05/06/19 16:35 Dose: 1 gm Docusate Sodium (Colace) 100 mg PO BID PRN PRN Reason: Constipation Enoxaparin Sodium (Lovenox) 30 mg SUBCUT Q24H [facility] Last Admin: 05/06/19 18:32 Dose: 30 mg Famotidine (Pepcid) 20 mg PO DAILY [facility] Ferrous Sulfate (Ferrous Sulfate) 325 mg PO Q48H [facility] Fish Oil (Fish Oil) 1 gm PO TID [facility] Fluticasone Propionate (Flonase) 0 gm NASBOTH DAILY PRN PRN Reason: Rhinitis Hydralazine HCl (Apresoline) 25 mg PO BID [facility] Sodium Chloride (Normal Saline) 1,000 mls @ 125 drops/hr IV ASDIRECTED [facility] Last Admin: 05/06/19 16:35 Dose: 125 drops/hr Azithromycin 500 mg/ Sodium (Chloride) 250 mls @ 250 mls/hr IV ONETIME ONE Stop: 05/06/19 19:45 Azithromycin 250 mg/ Sodium (Chloride) 250 mls @ 250 mls/hr IV Q24H [facility] Stop: 05/09/19 19:59 Levothyroxine Sodium (Synthroid) 50 mcg PO SUTUWETHSA@0600 [facility] Levothyroxine Sodium (Synthroid) 75 mcg PO MOFR@0600 [facility] Mometasone Furoate/Formoterol Fumar (Dulera 200-5 Mcg) 0 puff IH BID [facility] Montelukast Sodium (Singulair) 10 mg PO DAILY [facility] Multivitamins/Minerals/Vitamin C (Tab-A-Karli) 1 tab PO DAILY [facility] Non-Formulary Medication (Magnesium Chloride [Slow-Mag]) 71.5 mg PO BID [facility] Ondansetron HCl (Zofran) 4 mg IV Q4H PRN PRN Reason: Nausea/Vomiting Potassium Chloride (Klor-Con M20) 20 meq PO BEDTIME [facility] Potassium Chloride (Klor-Con M20) 40 meq PO ACBREAKFAST [facility] Simvastatin (Zocor) 40 mg PO BEDTIME [facility] Sodium Chloride (Saline Flush) 10 ml FLUSH ASDIRECTED PRN PRN Reason: Keep Vein Open Tobramycin (Tobramycin 0.3% Ophth Soln) 0 ml EYEBOTH QID [facility] Stop: 05/13/19 17:01 Zolpidem Tartrate (Ambien) 5 mg PO BEDTIME PRN PRN Reason: Sleep Assessment/Plan Comment:: 1. Admit to inpatient 2. Lovenox for VTE prophylaxis 3. Diabetic diet and Accu-Cheks 4. By mouth potassium 5. Recheck troponin in the morning 6. Recheck labs in the morning 7. Rocephin/Zithromax IV and blood cultures 8. PT/OT and up with assist 9. nutrition services assistant to see regards to living conditions 10. IV fluids for the dehydration and the acute kidney injury upon chronic renal failure
[2019-05-06] MEDS: hydrALAZINE 25 MG Tab PO SCH (20:08)
[2019-05-06] MEDS: Carvedilol 25 MG Tab PO SCH (20:08)
[2019-05-06] MEDS: Simvastatin 40 MG Tab PO SCH (20:09)
[2019-05-06] MEDS: Potassium Chloride 20 MEQ Tab.ER PO SCH (20:09)
[2019-05-06] MEDS: Formoterol/Mometasone 200-5 MCG 8.8 GM Inhaler IH SCH (20:21)
[2019-05-06] MEDS: Fish Oil/Omega-3 Fatty Acids 1 Gm Cap PO SCH (20:22)
[2019-05-06] MEDS: Albuterol/Ipratropium 3.0-0.5 MG/3 ML Neb Soln NEB SCH (20:22)
[2019-05-06] MEDS: Tobramycin 0.3% Ophth Drops 5 ML Bottle EYEBOTH SCH (20:22)
[2019-05-07] MEDS: Sodium Chloride 0.9% 1,000 ML IV SCH (01:25)
[2019-05-07] MEDS: Albuterol 0.083% 2.5 MG/3 ML Neb Soln NEB PRN ×2 (02:51→08:26)
[2019-05-07] MEDS ORDERED: Levothyroxine 50 MCG Tab PO SCH (06:00)
[2019-05-07] MEDS: Albuterol/Ipratropium 3.0-0.5 MG/3 ML Neb Soln NEB SCH ×4 (06:20→20:26)
[2019-05-07] MEDS: Potassium Chloride 20 MEQ Tab.ER PO SCH ×2 (06:38→20:27)
[2019-05-07] MEDS: Tobramycin 0.3% Ophth Drops 5 ML Bottle EYEBOTH SCH ×4 (08:13→20:28)
[2019-05-07] MEDS: Formoterol/Mometasone 200-5 MCG 8.8 GM Inhaler IH SCH ×2 (08:13→20:26)
[2019-05-07] MEDS: Montelukast 10 MG Tab PO SCH (08:31)
[2019-05-07] MEDS: Carvedilol 25 MG Tab PO SCH ×2 (08:31→20:25)
[2019-05-07] MEDS: Fish Oil/Omega-3 Fatty Acids 1 Gm Cap PO SCH ×3 (08:32→20:26)
[2019-05-07] MEDS: hydrALAZINE 25 MG Tab PO SCH ×2 (08:32→20:25)
[2019-05-07] MEDS: Multivitamin Tab PO SCH (08:32)
[2019-05-07] MEDS: Famotidine 20 MG Tab PO SCH (08:33)
[2019-05-07] MEDS: Calcium Carbonate 500 MG Tablet PO SCH (08:33)
[2019-05-07] MEDS ORDERED: Clopidogrel 75 MG Tab PO ONE (08:51)
--- NOTE | 2019-05-07 08:59 | PCM.PN ---
- General Info Date of Service: 05/07/19 Subjective Update: Isa admitted for shortness of breath yesterday. This morning she is still complaining of difficulty breathing and the acute respiratory distress. Functional Status: Reports: Pain Controlled - Review of Systems General: Reports: No Symptoms HEENT: Reports: No Symptoms Pulmonary: Reports: Shortness of Breath, Cough Cardiovascular: Reports: Dyspnea on Exertion, Orthopnea, PND Gastrointestinal: Reports: No Symptoms Genitourinary: Reports: No Symptoms Musculoskeletal: Reports: No Symptoms - Patient Data Vitals - Most Recent: Last Vital Signs Temp 98.3 F 05/07/19 04:00 Pulse 60 05/07/19 08:31 Resp 18 05/07/19 04:00 BP 120/69 05/07/19 08:32 Pulse Ox 93 L 05/07/19 04:00 Weight - Most Recent: 156.489 kg I&O - Last 24 Hours: Intake & Output 05/06/19 05/07/19 05/07/19 22:59 06:59 14:59 Intake Total 945 1149 Output Total 250 250 Balance 695 899 Lab Results Last 24 Hours: Laboratory Results - last 24 hr 05/06/19 05/06/19 05/06/19 Range/Units 14:59 14:59 14:59 WBC 13.8 H (4.5-12.0) X10-3/uL RBC 4.16 (3.23-5.20) x10(6)uL Hgb 12.6 (11.5-15.5) g/dL Hct 39.0 (30.0-51.3) % MCV 93.6 (80-96) fL MCH 30.3 (27.7-33.6) pg MCHC 32.4 (32.2-35.4) g/dL RDW 14.9 (11.5-15.5) % Plt Count 239 (125-369) X10(3)uL MPV 10.0 (7.4-10.4) fL Add Manual Diff Yes Neutrophils % (Manual) 86 H (46-82) % Band Neutrophils % 2 (0-6) % Lymphocytes % (Manual) 6 L (13-37) % Monocytes % (Manual) 6 (4-12) % Sodium 138 (135-145) mmol/L Potassium 3.2 L (3.5-5.3) mmol/L Chloride 99 L D (100-110) mmol/L Carbon Dioxide 30 (21-32) mmol/L BUN 67 H D (7-18) mg/dL Creatinine 3.0 H* (0.55-1.02) mg/dL Est Cr Clr Drug Dosing TNP Estimated GFR (MDRD) 15 L (>60) BUN/Creatinine Ratio 22.3 H (9-20) Glucose 161 H (80-116) mg/dL POC Glucose (80-116) mg/dL Lactic Acid (0.4-2.2) mmol/L Calcium 8.3 L (8.6-10.2) mg/dL Total Bilirubin 1.2 (0.1-1.3) mg/dL AST 197 H* (5-25) IU/L ALT 92 H (12-36) U/L Alkaline Phosphatase 156 H (56-112) IU/L Troponin I 0.607 H* (<0.017-0.056) ng/mL NT-Pro-B Natriuret Pep 61281 H* (<=450) pg/mL Total Protein 6.7 (6.0-8.0) g/dL Albumin 2.5 L (3.2-4.6) g/dL Globulin 4.2 g/dL Albumin/Globulin Ratio 0.6 Urine Color (YELLOW) Urine Appearance (CLEAR) Urine pH (5.0-6.5) Ur Specific [place] (1.010-1.025) Urine Protein (NEGATIVE) mg/dL Urine Glucose (UA) (NORMAL) mg/dL Urine Ketones (NEGATIVE) mg/dL Urine Occult Blood (NEGATIVE) Urine Nitrite (NEGATIVE) Urine Bilirubin (NEGATIVE) Urine Urobilinogen (NEGATIVE) mg/dL Ur Leukocyte Esterase (NEGATIVE) Urine RBC (0-5) Urine WBC (0-5) Ur Squamous Epith Cells (NS,R,O) Urine Bacteria (NS) 05/06/19 05/06/19 05/06/19 Range/Units 14:59 16:19 23:16 WBC (4.5-12.0) X10-3/uL RBC (3.23-5.20) x10(6)uL Hgb (11.5-15.5) g/dL Hct (30.0-51.3) % MCV (80-96) fL MCH (27.7-33.6) pg MCHC (32.2-35.4) g/dL RDW (11.5-15.5) % Plt Count (125-369) X10(3)uL MPV (7.4-10.4) fL Add Manual Diff Neutrophils % (Manual) (46-82) % Band Neutrophils % (0-6) % Lymphocytes % (Manual) (13-37) % Monocytes % (Manual) (4-12) % Sodium (135-145) mmol/L Potassium (3.5-5.3) mmol/L Chloride (100-110) mmol/L Carbon Dioxide (21-32) mmol/L BUN (7-18) mg/dL Creatinine (0.55-1.02) mg/dL Est Cr Clr Drug Dosing Estimated GFR (MDRD) (>60) BUN/Creatinine Ratio (9-20) Glucose (80-116) mg/dL POC Glucose (80-116) mg/dL Lactic Acid 2.4 H (0.4-2.2) mmol/L Calcium (8.6-10.2) mg/dL Total Bilirubin (0.1-1.3) mg/dL AST (5-25) IU/L ALT (12-36) U/L Alkaline Phosphatase (56-112) IU/L Troponin I 0.313 H* (<0.017-0.056) ng/mL NT-Pro-B Natriuret Pep (<=450) pg/mL Total Protein (6.0-8.0) g/dL Albumin (3.2-4.6) g/dL Globulin g/dL Albumin/Globulin Ratio Urine Color [place] (YELLOW) Urine Appearance Slightly cloudy (CLEAR) Urine pH 5.0 (5.0-6.5) Ur Specific [place] 1.020 (1.010-1.025) Urine Protein 30 H (NEGATIVE) mg/dL Urine Glucose (UA) Normal (NORMAL) mg/dL Urine Ketones 15 H (NEGATIVE) mg/dL Urine Occult Blood Large H (NEGATIVE) Urine Nitrite Negative (NEGATIVE) Urine Bilirubin Small H (NEGATIVE) Urine Urobilinogen 4 H (NEGATIVE) mg/dL Ur Leukocyte Esterase Large H (NEGATIVE) Urine RBC 30-40 H (0-5) Urine WBC 30-40 H (0-5) Ur Squamous Epith Cells Few H (NS,R,O) Urine Bacteria Many H (NS) 05/07/19 05/07/19 Range/Units 08:19 08:44 WBC 9.6 (4.5-12.0) X10-3/uL RBC 3.70 (3.23-5.20) x10(6)uL Hgb 11.5 (11.5-15.5) g/dL Hct 35.1 (30.0-51.3) % MCV 94.7 (80-96) fL MCH 31.2 (27.7-33.6) pg MCHC 32.9 (32.2-35.4) g/dL RDW 15.2 (11.5-15.5) % Plt Count 192 (125-369) X10(3)uL MPV (7.4-10.4) fL Add Manual Diff Neutrophils % (Manual) (46-82) % Band Neutrophils % (0-6) % Lymphocytes % (Manual) (13-37) % Monocytes % (Manual) (4-12) % Sodium (135-145) mmol/L Potassium (3.5-5.3) mmol/L Chloride (100-110) mmol/L Carbon Dioxide (21-32) mmol/L BUN (7-18) mg/dL Creatinine (0.55-1.02) mg/dL Est Cr Clr Drug Dosing Estimated GFR (MDRD) (>60) BUN/Creatinine Ratio (9-20) Glucose (80-116) mg/dL POC Glucose 154 H (80-116) mg/dL Lactic Acid (0.4-2.2) mmol/L Calcium (8.6-10.2) mg/dL Total Bilirubin (0.1-1.3) mg/dL AST (5-25) IU/L ALT (12-36) U/L Alkaline Phosphatase (56-112) IU/L Troponin I (<0.017-0.056) ng/mL NT-Pro-B Natriuret Pep (<=450) pg/mL Total Protein (6.0-8.0) g/dL Albumin (3.2-4.6) g/dL Globulin g/dL Albumin/Globulin Ratio Urine Color (YELLOW) Urine Appearance (CLEAR) Urine pH (5.0-6.5) Ur Specific [place] (1.010-1.025) Urine Protein (NEGATIVE) mg/dL Urine Glucose (UA) (NORMAL) mg/dL Urine Ketones (NEGATIVE) mg/dL Urine Occult Blood (NEGATIVE) Urine Nitrite (NEGATIVE) Urine Bilirubin (NEGATIVE) Urine Urobilinogen (NEGATIVE) mg/dL Ur Leukocyte Esterase (NEGATIVE) Urine RBC (0-5) Urine WBC (0-5) Ur Squamous Epith Cells (NS,R,O) Urine Bacteria (NS) Med Orders - Current: Current Medications Acetaminophen (Tylenol Extra Strength) 1,000 mg PO Q6H PRN PRN Reason: Pain Albuterol (Proventil Neb Soln) 2.5 mg NEB Q2H PRN PRN Reason: Shortness Of Breath/wheezing Last Admin: 05/07/19 08:26 Dose: 2.5 mg Albuterol/Ipratropium (Duoneb 3.0-0.5 Mg/3 Ml) 3 ml NEB QIDRT [facility] Last Admin: 05/07/19 06:20 Dose: 3 ml Aspirin (Ecotrin) 325 mg PO DAILY [facility] Calcium Carbonate/Glycine (Oyster Shell Calcium) 500 mg PO DAILY [facility] Last Admin: 05/07/19 08:33 Dose: 500 mg Carvedilol (Coreg) 25 mg PO BID [facility] Last Admin: 05/07/19 08:31 Dose: 25 mg Ceftriaxone Sodium (Rocephin) 1 gm IVPUSH Q24H [facility] Last Admin: 05/06/19 16:35 Dose: 1 gm Clopidogrel Bisulfate (Plavix) 300 mg PO ONETIME ONE Stop: 05/07/19 08:52 Docusate Sodium (Colace) 100 mg PO BID PRN PRN Reason: Constipation Enoxaparin Sodium (Lovenox) 150 mg SUBCUT Q12H [facility] Stop: 05/09/19 09:01 Famotidine (Pepcid) 20 mg PO DAILY [facility] Last Admin: 05/07/19 08:33 Dose: 20 mg Ferrous Sulfate (Ferrous Sulfate) 325 mg PO Q48H [facility] Fish Oil (Fish Oil) 1 gm PO TID [facility] Last Admin: 05/07/19 08:32 Dose: 1 gm Fluticasone Propionate (Flonase) 0 gm NASBOTH DAILY PRN PRN Reason: Rhinitis Furosemide (Lasix) 40 mg IVPUSH BID [facility] Hydralazine HCl (Apresoline) 25 mg PO BID [facility] Last Admin: 05/07/19 08:32 Dose: 25 mg Azithromycin 250 mg/ Sodium (Chloride) 250 mls @ 250 mls/hr IV Q24H [facility] Stop: 05/10/19 19:59 Levothyroxine Sodium (Synthroid) 50 mcg PO SUTUWETHSA@0600 [facility] Levothyroxine Sodium (Levothyroxine) 75 mcg PO MoFr@0600 [facility] Magnesium Chloride (Mag-64) 64 mg PO BID [facility] Methylprednisolone Sodium Succinate (Solu-Medrol) 125 mg IVPUSH Q8H [facility] Mometasone Furoate/Formoterol Fumar (Dulera 200-5 Mcg) 0 puff IH BID [facility] Last Admin: 05/07/19 08:13 Dose: 2 puff Montelukast Sodium (Singulair) 10 mg PO DAILY [facility] Last Admin: 05/07/19 08:31 Dose: 10 mg Multivitamins/Minerals/Vitamin C (Tab-A-Karli) 1 tab PO DAILY [facility] Last Admin: 05/07/19 08:32 Dose: 1 tab Ondansetron HCl (Zofran) 4 mg IV Q4H PRN PRN Reason: Nausea/Vomiting Potassium Chloride (Klor-Con M20) 20 meq PO BEDTIME [facility] Last Admin: 05/06/19 20:09 Dose: 20 meq Potassium Chloride (Klor-Con M20) 40 meq PO ACBREAKFAST [facility] Last Admin: 05/07/19 06:38 Dose: 40 meq Simvastatin (Zocor) 40 mg PO BEDTIME [facility] Last Admin: 05/06/19 20:09 Dose: 40 mg Sodium Chloride (Saline Flush) 10 ml FLUSH ASDIRECTED PRN PRN Reason: Keep Vein Open Tobramycin (Tobramycin 0.3% Ophth Soln) 0 ml EYEBOTH QID [facility] Stop: 05/13/19 17:01 Last Admin: 05/07/19 08:13 Dose: 2 drop Zolpidem Tartrate (Ambien) 5 mg PO BEDTIME PRN PRN Reason: Sleep Discontinued Medications Albuterol/Ipratropium (Duoneb 3.0-0.5 Mg/3 Ml) 6 ml NEB ONETIME ONE Stop: 05/06/19 15:22 Last Admin: 05/06/19 15:36 Dose: 6 ml Calcium Carbonate/Glycine (Tums) 500 mg PO DAILY [facility] Last Admin: 05/06/19 18:32 Dose: 500 mg Enoxaparin Sodium (Lovenox) 30 mg SUBCUT Q24H [facility] Last Admin: 05/06/19 18:32 Dose: 30 mg Sodium Chloride (Normal Saline) 1,000 mls @ 125 drops/hr IV ASDIRECTED [facility] Last Admin: 05/07/19 01:25 Dose: 125 drops/hr Azithromycin 500 mg/ Sodium (Chloride) 250 mls @ 250 mls/hr IV ONETIME ONE Stop: 05/06/19 19:45 Last Admin: 05/06/19 20:05 Dose: 250 mls/hr Levothyroxine Sodium (Synthroid) 75 mcg PO MOFR@0600 [facility] Last Admin: 05/07/19 06:20 Dose: 75 mcg Methylprednisolone Sodium Succinate (Solu-Medrol) 125 mg IVPUSH ONETIME ONE Stop: 05/06/19 15:23 Last Admin: 05/06/19 15:36 Dose: 125 mg - Exam Quality Assessment: Supplemental Oxygen General: Alert, Oriented, Moderate Distress HEENT: Pupils Equal Neck: Supple, Trachea Midline Lungs: Decreased Breath Sounds, Crackles, Rales, Rhonchi Cardiovascular: Regular Rate Extremities: No: Pedal Edema Skin: Warm, Rash (bullae right arm) Psy/Mental Status: Alert, Normal Affect EKG INTERPRETATION EKG Date: 05/06/19 Rhythm: NSR - Problem List & Annotations (1) NSTEMI (non-ST elevated myocardial infarction) SNOMED Code(s): 80013657 Code(s): I21.4 - NON-ST ELEVATION (NSTEMI) MYOCARDIAL INFARCTION Status: Acute Current Visit: Yes (2) Asthma exacerbation SNOMED Code(s): 445257175 Code(s): J45.901 - UNSPECIFIED ASTHMA WITH (ACUTE) EXACERBATION Status: Acute Current Visit: Yes (3) Pulmonary edema SNOMED Code(s): 13719020 Code(s): J81.1 - CHRONIC PULMONARY EDEMA Status: Acute Current Visit: Yes Qualifiers: Chronicity: acute Qualified Code(s): J81.0 - Acute pulmonary edema (4) CKD (chronic kidney disease) SNOMED Code(s): 001742067 Code(s): N18.9 - CHRONIC KIDNEY DISEASE, UNSPECIFIED Status: Acute Current Visit: Yes Qualifiers: Chronic kidney disease stage: stage 3 (moderate) Qualified Code(s): N18.3 - Chronic kidney disease, stage 3 (moderate) (5) Obesities, morbid SNOMED Code(s): 781965806 Code(s): E66.01 - MORBID (SEVERE) OBESITY DUE TO EXCESS CALORIES Status: Chronic Current Visit: Yes (6) MARLON (obstructive sleep apnea) SNOMED Code(s): 29388297 Code(s): G47.33 - OBSTRUCTIVE SLEEP APNEA (ADULT) (PEDIATRIC) Status: Chronic Current Visit: Yes (7) HTN (hypertension) SNOMED Code(s): 61756912 Code(s): I10 - ESSENTIAL (PRIMARY) HYPERTENSION Status: Chronic Current Visit: Yes Qualifiers: Hypertension type: essential hypertension Qualified Code(s): I10 - Essential (primary) hypertension (8) Diabetes type 2, controlled SNOMED Code(s): 76811281, 224238058 Code(s): E11.9 - TYPE 2 DIABETES MELLITUS WITHOUT COMPLICATIONS Status: Chronic Current Visit: Yes (9) Anemia, chronic disease SNOMED Code(s): 974421081 Code(s): D63.8 - ANEMIA IN OTHER CHRONIC DISEASES CLASSIFIED ELSEWHERE Status: Chronic Current Visit: Yes (10) HLD (hyperlipidemia) SNOMED Code(s): 76092797 Code(s): E78.5 - HYPERLIPIDEMIA, UNSPECIFIED Status: Chronic Current Visit: Yes (11) Bullous impetigo SNOMED Code(s): 242382296 Code(s): L01.03 - BULLOUS IMPETIGO Status: Acute Current Visit: Yes (12) Palliative care status SNOMED Code(s): 776935388 Code(s): Z51.5 - ENCOUNTER FOR PALLIATIVE CARE Status: Acute Current Visit: Yes (13) Pneumonia SNOMED Code(s): 338101149 Code(s): J18.9 - PNEUMONIA, UNSPECIFIED ORGANISM Status: Acute Current Visit: Yes (14) Bacteriuria SNOMED Code(s): 83259640 Code(s): R82.71 - BACTERIURIA Status: Acute Current Visit: Yes - Problem List Review Problem List Initiated/Reviewed/Updated: Yes - My Orders Last 24 Hours: My Active Orders 05/07/19 08:46 Echo Comp wo Cont [US] Urgent 05/07/19 08:48 EKG Documentation Completion [RC] ASDIRECTED EKG 12 Lead [EK] Routine 05/07/19 08:51 Clopidogrel [Plavix] 300 mg PO ONETIME ONE 05/07/19 09:00 Aspirin [Ecotrin] 325 mg PO DAILY Enoxaparin [Lovenox] 150 mg SUBCUT Q12H Furosemide [Lasix] 40 mg IVPUSH BID methylPREDNISolone Sod Succ [Solu-MEDROL] 125 mg IVPUSH Q8H 05/08/19 05:11 BASIC METABOLIC PANEL,BMP [CHEM] AM CBC WITH AUTO DIFF [HEME] AM PRO B-TYPE NATRIUR PEPT,BNPPRO [CHEM] DAILY TROPONIN I [CHEM] AM 05/09/19 05:11 PRO B-TYPE NATRIUR PEPT,BNPPRO [CHEM] DAILY - Plan Plan:: The patient is in acute respiratory distress which could be multifactorial. Given the elevated troponin, and BNP, and x-ray showing pulmonary edema, I will assume she does have an NST CO. I'll start Lasix, aspirin Plavix and Lovenox. I will give her SVNs as necessary. Obtain an echocardiogram and repeat labs,EKG this morning and tomorrow as well. Also continue the Rocephin and azithromycin because of the possibility of a pneumonia, and bullous impetigo of the right arm. We will be awaiting blood and urine cultures.
[2019-05-07] MEDS: Aspirin 325 MG Tab.EC PO SCH (14:06)
[2019-05-07] MEDS: Furosemide 40 MG/4 ML VIAL IVPUSH SCH ×4 (14:07→20:27)
[2019-05-07] MEDS: Enoxaparin 150 MG/1 ML Syringe SUBCUT SCH (14:10)
[2019-05-07] MEDS: Magnesium Chloride 64 MG Tab.ER PO SCH ×2 (14:12→20:27)
[2019-05-07] MEDS: methylPREDNISolone Sodium Succinate 125 MG/2 ML SDV IVPUSH SCH ×2 (14:15→16:50)
[2019-05-07] MEDS: Ferrous Sulfate 325 MG Tab PO SCH (14:42)
[2019-05-07] MEDS: cefTRIAXone 1 GM Vial IVPUSH SCH (16:44)
[2019-05-07] MEDS: Sodium Chloride 0.9% 10 ML Syringe FLUSH PRN (16:47)
[2019-05-07] MEDS: Azithromycin 250 MG in Sodium Chloride 0.9% 250 ML IV SCH (18:19)
[2019-05-07] MEDS: Simvastatin 40 MG Tab PO SCH (20:28)
[2019-05-08] MEDS: methylPREDNISolone Sodium Succinate 125 MG/2 ML SDV IVPUSH SCH ×4 (01:14→17:06)
[2019-05-08] MEDS: Sodium Chloride 0.9% 10 ML Syringe FLUSH PRN ×7 (01:15→21:30)
[2019-05-08] MEDS: Albuterol 0.083% 2.5 MG/3 ML Neb Soln NEB PRN (03:52)
[2019-05-08] MEDS: Albuterol/Ipratropium 3.0-0.5 MG/3 ML Neb Soln NEB SCH ×4 (06:33→21:28)
[2019-05-08] MEDS: Potassium Chloride 20 MEQ Tab.ER PO SCH ×2 (06:33→21:24)
[2019-05-08] MEDS: Levothyroxine 50 MCG Tab PO SCH (06:33)
[2019-05-08] MEDS: hydrALAZINE 25 MG Tab PO SCH ×3 (07:50→21:25)
[2019-05-08] MEDS: Carvedilol 25 MG Tab PO SCH ×3 (07:51→21:25)
[2019-05-08] MEDS: Formoterol/Mometasone 200-5 MCG 8.8 GM Inhaler IH SCH ×3 (07:52→21:26)
[2019-05-08] MEDS: Aspirin 325 MG Tab.EC PO SCH ×2 (07:53→11:50)
[2019-05-08] MEDS: Furosemide 40 MG/4 ML VIAL IVPUSH SCH ×3 (07:53→21:24)
[2019-05-08] MEDS: Fish Oil/Omega-3 Fatty Acids 1 Gm Cap PO SCH ×4 (07:53→21:24)
[2019-05-08] MEDS: Famotidine 20 MG Tab PO SCH ×2 (07:54→11:51)
[2019-05-08] MEDS: Enoxaparin 150 MG/1 ML Syringe SUBCUT SCH ×2 (07:54→11:51)
[2019-05-08] MEDS: Calcium Carbonate 500 MG Tablet PO SCH ×2 (07:54→11:53)
[2019-05-08] MEDS: Magnesium Chloride 64 MG Tab.ER PO SCH ×3 (07:54→21:26)
[2019-05-08] MEDS: Montelukast 10 MG Tab PO SCH ×2 (07:55→11:52)
[2019-05-08] MEDS: Tobramycin 0.3% Ophth Drops 5 ML Bottle EYEBOTH SCH ×5 (07:56→21:26)
[2019-05-08] MEDS: Multivitamin Tab PO SCH ×2 (07:57→11:52)
--- NOTE | 2019-05-08 10:23 | PCM.PN ---
- General Info Date of Service: 05/08/19 Subjective Update: Ms. Guerrero has improved some today, oxygen needs going down to 2 L by nasal cannula. She still complains of shortness of breath cough and wheezing but better from yesterday. No fever. She denies any chest pain. Functional Status: Reports: Pain Controlled - Review of Systems General: Reports: No Symptoms HEENT: Reports: No Symptoms Pulmonary: Reports: Shortness of Breath, Cough Cardiovascular: Reports: No Symptoms Gastrointestinal: Reports: No Symptoms Musculoskeletal: Reports: No Symptoms - Patient Data Vitals - Most Recent: Last Vital Signs Temp 97.9 F 05/08/19 04:00 Pulse 64 05/08/19 07:51 Resp 18 05/08/19 04:00 BP 121/52 L 05/08/19 07:51 Pulse Ox 94 L 05/08/19 04:00 Weight - Most Recent: 156.489 kg I&O - Last 24 Hours: Intake & Output 05/07/19 05/08/19 05/08/19 22:59 06:59 14:59 Intake Total 675 350 Output Total 750 1750 Balance -75 -1400 Lab Results Last 24 Hours: Laboratory Results - last 24 hr 05/07/19 05/08/19 05/08/19 Range/Units 17:44 06:55 06:55 WBC 7.9 (4.5-12.0) X10-3/uL Corrected WBC 7.6 (4.5-12.0) X10(3) RBC 3.40 (3.23-5.20) x10(6)uL Hgb 10.8 L (11.5-15.5) g/dL Hct 31.7 (30.0-51.3) % MCV 93.3 (80-96) fL MCH 31.8 (27.7-33.6) pg MCHC 34.0 (32.2-35.4) g/dL RDW 14.7 (11.5-15.5) % Plt Count 177 (125-369) X10(3)uL MPV 10.1 (7.4-10.4) fL Add Manual Diff Yes Neutrophils % (Manual) 92 H (46-82) % Lymphocytes % (Manual) 5 L (13-37) % Monocytes % (Manual) 3 L (4-12) % Nucleated RBCs 3 H (0-0) /100WBC Sodium 131 L D (135-145) mmol/L Potassium 3.2 L (3.5-5.3) mmol/L Chloride 96 L D (100-110) mmol/L Carbon Dioxide 30 (21-32) mmol/L BUN 85 H D (7-18) mg/dL Creatinine 2.2 H* (0.55-1.02) mg/dL Est Cr Clr Drug Dosing 19.08 mL/min Estimated GFR (MDRD) 22 L (>60) BUN/Creatinine Ratio 38.6 H (9-20) Glucose 202 H (80-116) mg/dL POC Glucose 176 H (80-116) mg/dL Calcium 8.2 L (8.6-10.2) mg/dL Troponin I (<0.017-0.056) ng/mL NT-Pro-B Natriuret Pep (<=450) pg/mL 05/08/19 Range/Units 06:55 WBC (4.5-12.0) X10-3/uL Corrected WBC (4.5-12.0) X10(3) RBC (3.23-5.20) x10(6)uL Hgb (11.5-15.5) g/dL Hct (30.0-51.3) % MCV (80-96) fL MCH (27.7-33.6) pg MCHC (32.2-35.4) g/dL RDW (11.5-15.5) % Plt Count (125-369) X10(3)uL MPV (7.4-10.4) fL Add Manual Diff Neutrophils % (Manual) (46-82) % Lymphocytes % (Manual) (13-37) % Monocytes % (Manual) (4-12) % Nucleated RBCs (0-0) /100WBC Sodium (135-145) mmol/L Potassium (3.5-5.3) mmol/L Chloride (100-110) mmol/L Carbon Dioxide (21-32) mmol/L BUN (7-18) mg/dL Creatinine (0.55-1.02) mg/dL Est Cr Clr Drug Dosing mL/min Estimated GFR (MDRD) (>60) BUN/Creatinine Ratio (9-20) Glucose (80-116) mg/dL POC Glucose (80-116) mg/dL Calcium (8.6-10.2) mg/dL Troponin I 0.049 (<0.017-0.056) ng/mL NT-Pro-B Natriuret Pep 47683 H* (<=450) pg/mL Travis Results Last 24 Hours: Microbiology 05/06/19 16:19 Urine Culture - Preliminary Urine, Catheterized Gram Negative Rods 05/06/19 14:59 Aerobic Blood Culture - Preliminary Blood - Venous NO GROWTH AFTER 1 DAY Anaerobic Blood Culture - Preliminary NO GROWTH AFTER 1 DAY Med Orders - Current: Current Medications Acetaminophen (Tylenol Extra Strength) 1,000 mg PO Q6H PRN PRN Reason: Pain Albuterol (Proventil Neb Soln) 2.5 mg NEB Q2H PRN PRN Reason: Shortness Of Breath/wheezing Last Admin: 05/08/19 03:52 Dose: 2.5 mg Albuterol/Ipratropium (Duoneb 3.0-0.5 Mg/3 Ml) 3 ml NEB QIDRT [facility] Last Admin: 05/08/19 06:33 Dose: 3 ml Aspirin (Ecotrin) 325 mg PO DAILY [facility] Last Admin: 05/08/19 07:53 Dose: 325 mg Calcium Carbonate/Glycine (Oyster Shell Calcium) 500 mg PO DAILY [facility] Last Admin: 05/08/19 07:54 Dose: 500 mg Carvedilol (Coreg) 25 mg PO BID [facility] Last Admin: 05/08/19 07:51 Dose: 25 mg Ceftriaxone Sodium (Rocephin) 1 gm IVPUSH Q24H [facility] Last Admin: 05/07/19 16:44 Dose: 1 gm Docusate Sodium (Colace) 100 mg PO BID PRN PRN Reason: Constipation Famotidine (Pepcid) 20 mg PO DAILY [facility] Last Admin: 05/08/19 07:54 Dose: 20 mg Ferrous Sulfate (Ferrous Sulfate) 325 mg PO Q48H [facility] Last Admin: 05/07/19 14:42 Dose: 325 mg Fish Oil (Fish Oil) 1 gm PO TID [facility] Last Admin: 05/08/19 07:53 Dose: 1 gm Fluticasone Propionate (Flonase) 0 gm NASBOTH DAILY PRN PRN Reason: Rhinitis Furosemide (Lasix) 40 mg IVPUSH BID [facility] Last Admin: 05/08/19 07:53 Dose: 40 mg Hydralazine HCl (Apresoline) 25 mg PO BID [facility] Last Admin: 05/08/19 07:50 Dose: 25 mg Azithromycin 250 mg/ Sodium (Chloride) 250 mls @ 250 mls/hr IV Q24H [facility] Stop: 05/10/19 19:59 Last Admin: 05/07/19 18:19 Dose: 250 mls/hr Levothyroxine Sodium (Synthroid) 50 mcg PO SUTUWETHSA@0600 [facility] Last Admin: 05/08/19 06:33 Dose: 50 mcg Levothyroxine Sodium (Levothyroxine) 75 mcg PO MoFr@0600 [facility] Magnesium Chloride (Mag-64) 64 mg PO BID [facility] Last Admin: 05/08/19 07:54 Dose: 64 mg Methylprednisolone Sodium Succinate (Solu-Medrol) 125 mg IVPUSH Q8H [facility] Last Admin: 05/08/19 07:55 Dose: 125 mg Mometasone Furoate/Formoterol Fumar (Dulera 200-5 Mcg) 0 puff IH BID [facility] Last Admin: 05/08/19 07:52 Dose: 2 puff Montelukast Sodium (Singulair) 10 mg PO DAILY [facility] Last Admin: 05/08/19 07:55 Dose: 10 mg Multivitamins/Minerals/Vitamin C (Tab-A-Karli) 1 tab PO DAILY [facility] Last Admin: 05/08/19 07:57 Dose: 1 tab Ondansetron HCl (Zofran) 4 mg IV Q4H PRN PRN Reason: Nausea/Vomiting Potassium Chloride (Klor-Con M20) 20 meq PO BEDTIME [facility] Last Admin: 05/07/19 20:27 Dose: 20 meq Potassium Chloride (Klor-Con M20) 40 meq PO ACBREAKFAST [facility] Last Admin: 05/08/19 06:33 Dose: 40 meq Simvastatin (Zocor) 40 mg PO BEDTIME [facility] Last Admin: 05/07/19 20:28 Dose: 40 mg Sodium Chloride (Saline Flush) 10 ml FLUSH ASDIRECTED PRN PRN Reason: Keep Vein Open Last Admin: 05/08/19 08:05 Dose: 10 ml Tobramycin (Tobramycin 0.3% Ophth Soln) 0 ml EYEBOTH QID [facility] Stop: 05/13/19 17:01 Last Admin: 05/08/19 07:56 Dose: 2 drop Zolpidem Tartrate (Ambien) 5 mg PO BEDTIME PRN PRN Reason: Sleep Discontinued Medications Albuterol/Ipratropium (Duoneb 3.0-0.5 Mg/3 Ml) 6 ml NEB ONETIME ONE Stop: 05/06/19 15:22 Last Admin: 05/06/19 15:36 Dose: 6 ml Calcium Carbonate/Glycine (Tums) 500 mg PO DAILY [facility] Last Admin: 05/06/19 18:32 Dose: 500 mg Clopidogrel Bisulfate (Plavix) 300 mg PO ONETIME ONE Stop: 05/07/19 08:52 Last Admin: 05/07/19 14:05 Dose: 300 mg Enoxaparin Sodium (Lovenox) 30 mg SUBCUT Q24H [facility] Last Admin: 05/06/19 18:32 Dose: 30 mg Enoxaparin Sodium (Lovenox) 150 mg SUBCUT Q24H [facility] Stop: 05/08/19 09:01 Last Admin: 05/08/19 07:54 Dose: 150 mg Furosemide (Lasix) 40 mg IVPUSH BIDDIURETIC [facility] Last Admin: 05/07/19 14:30 Dose: Not Given Sodium Chloride (Normal Saline) 1,000 mls @ 125 drops/hr IV ASDIRECTED [facility] Last Admin: 05/07/19 01:25 Dose: 125 drops/hr Azithromycin 500 mg/ Sodium (Chloride) 250 mls @ 250 mls/hr IV ONETIME ONE Stop: 05/06/19 19:45 Last Admin: 05/06/19 20:05 Dose: 250 mls/hr Levothyroxine Sodium (Synthroid) 75 mcg PO MOFR@0600 [facility] Last Admin: 05/07/19 06:20 Dose: 75 mcg Methylprednisolone Sodium Succinate (Solu-Medrol) 125 mg IVPUSH ONETIME ONE Stop: 05/06/19 15:23 Last Admin: 05/06/19 15:36 Dose: 125 mg - Exam Quality Assessment: Supplemental Oxygen General: Alert, Oriented, Cooperative Neck: Supple Lungs: Crackles, Rhonchi Cardiovascular: Regular Rate Extremities: Redness - Problem List & Annotations (1) NSTEMI (non-ST elevated myocardial infarction) SNOMED Code(s): 48151873 Code(s): I21.4 - NON-ST ELEVATION (NSTEMI) MYOCARDIAL INFARCTION Status: Acute Current Visit: Yes (2) Asthma exacerbation SNOMED Code(s): 945004366 Code(s): J45.901 - UNSPECIFIED ASTHMA WITH (ACUTE) EXACERBATION Status: Acute Current Visit: Yes (3) Pulmonary edema SNOMED Code(s): 78242685 Code(s): J81.1 - CHRONIC PULMONARY EDEMA Status: Acute Current Visit: Yes Qualifiers: Chronicity: acute Qualified Code(s): J81.0 - Acute pulmonary edema (4) CKD (chronic kidney disease) SNOMED Code(s): 080186699 Code(s): N18.9 - CHRONIC KIDNEY DISEASE, UNSPECIFIED Status: Acute Current Visit: Yes Qualifiers: Chronic kidney disease stage: stage 3 (moderate) Qualified Code(s): N18.3 - Chronic kidney disease, stage 3 (moderate) (5) Obesities, morbid SNOMED Code(s): 925212836 Code(s): E66.01 - MORBID (SEVERE) OBESITY DUE TO EXCESS CALORIES Status: Chronic Current Visit: Yes (6) MARLON (obstructive sleep apnea) SNOMED Code(s): 24335035 Code(s): G47.33 - OBSTRUCTIVE SLEEP APNEA (ADULT) (PEDIATRIC) Status: Chronic Current Visit: Yes (7) HTN (hypertension) SNOMED Code(s): 43106908 Code(s): I10 - ESSENTIAL (PRIMARY) HYPERTENSION Status: Chronic Current Visit: Yes Qualifiers: Hypertension type: essential hypertension Qualified Code(s): I10 - Essential (primary) hypertension (8) Diabetes type 2, controlled SNOMED Code(s): 88356486, 281855275 Code(s): E11.9 - TYPE 2 DIABETES MELLITUS WITHOUT COMPLICATIONS Status: Chronic Current Visit: Yes (9) Anemia, chronic disease SNOMED Code(s): 301464090 Code(s): D63.8 - ANEMIA IN OTHER CHRONIC DISEASES CLASSIFIED ELSEWHERE Status: Chronic Current Visit: Yes (10) HLD (hyperlipidemia) SNOMED Code(s): 67652837 Code(s): E78.5 - HYPERLIPIDEMIA, UNSPECIFIED Status: Chronic Current Visit: Yes (11) Bullous impetigo SNOMED Code(s): 375315754 Code(s): L01.03 - BULLOUS IMPETIGO Status: Acute Current Visit: Yes (12) Palliative care status SNOMED Code(s): 495884862 Code(s): Z51.5 - ENCOUNTER FOR PALLIATIVE CARE Status: Acute Current Visit: Yes (13) Pneumonia SNOMED Code(s): 286263185 Code(s): J18.9 - PNEUMONIA, UNSPECIFIED ORGANISM Status: Acute Current Visit: Yes (14) Bacteriuria SNOMED Code(s): 62156971 Code(s): R82.71 - BACTERIURIA Status: Acute Current Visit: Yes - Problem List Review Problem List Initiated/Reviewed/Updated: Yes - My Orders Last 24 Hours: My Active Orders 05/07/19 21:00 Furosemide [Lasix] 40 mg IVPUSH BID 05/09/19 05:11 BASIC METABOLIC PANEL,BMP [CHEM] AM CBC WITH AUTO DIFF [HEME] AM PRO B-TYPE NATRIUR PEPT,BNPPRO [CHEM] DAILY - Plan Plan:: Echocardiogram showed ejection fraction of 63%, but with possible diastolic dysfunction. We'll continue oxygen supplementation, diuresis and IV Solu-Medrol and antibiotics. Repeat labs the morning. Encourage ambulation and incentive spirometry.
[2019-05-08] MEDS: Acetaminophen 500 MG Tab PO PRN (12:13)
[2019-05-08] MEDS: cefTRIAXone 1 GM Vial IVPUSH SCH (17:04)
[2019-05-08] MEDS: Azithromycin 250 MG in Sodium Chloride 0.9% 250 ML IV SCH (18:11)
[2019-05-08] MEDS: Simvastatin 40 MG Tab PO SCH (21:27)
[2019-05-09] MEDS: methylPREDNISolone Sodium Succinate 125 MG/2 ML SDV IVPUSH SCH ×3 (01:54→17:57)
[2019-05-09] MEDS: Levothyroxine 50 MCG Tab PO SCH (06:07)
[2019-05-09] MEDS: Potassium Chloride 20 MEQ Tab.ER PO SCH ×3 (06:08→21:28)
[2019-05-09] MEDS: Albuterol/Ipratropium 3.0-0.5 MG/3 ML Neb Soln NEB SCH ×4 (06:08→21:36)
--- NOTE | 2019-05-09 08:51 | PCM.PN ---
- General Info Date of Service: 05/09/19 Subjective Update: Ms. Guerrero has improved some today, oxygen needs going down to 2 L by nasal cannula. She still complains of shortness of breath cough and wheezing but better from yesterday. No fever. She denies any chest pain.She has developed mouth sores,painful Functional Status: Reports: Pain Controlled - Review of Systems General: Reports: Fatigue HEENT: Reports: No Symptoms Pulmonary: Reports: Cough, Wheezing Gastrointestinal: Reports: No Symptoms Genitourinary: Reports: No Symptoms Musculoskeletal: Reports: No Symptoms - Patient Data Vitals - Most Recent: Last Vital Signs Temp 98 F 05/09/19 04:00 Pulse 67 05/09/19 04:00 Resp 18 05/09/19 04:00 BP 134/72 05/09/19 04:00 Pulse Ox 92 L 05/09/19 00:00 Weight - Most Recent: 111.493 kg I&O - Last 24 Hours: Intake & Output 05/08/19 05/09/19 05/09/19 22:59 06:59 14:59 Intake Total 250 Output Total 600 2200 Balance -350 -2200 Lab Results Last 24 Hours: Laboratory Results - last 24 hr 05/08/19 05/09/19 05/09/19 Range/Units 16:57 06:35 06:35 WBC 6.2 (4.5-12.0) X10-3/uL RBC 3.37 (3.23-5.20) x10(6)uL Hgb 10.7 L (11.5-15.5) g/dL Hct 31.6 (30.0-51.3) % MCV 93.9 (80-96) fL MCH 31.7 (27.7-33.6) pg MCHC 33.8 (32.2-35.4) g/dL RDW 14.9 (11.5-15.5) % Plt Count 192 (125-369) X10(3)uL MPV 10.0 (7.4-10.4) fL Add Manual Diff Yes Neutrophils % (Manual) 80 (46-82) % Band Neutrophils % 4 (0-6) % Lymphocytes % (Manual) 11 L (13-37) % Monocytes % (Manual) 5 (4-12) % Nucleated RBCs 2 H (0-0) /100WBC Sodium (135-145) mmol/L Potassium (3.5-5.3) mmol/L Chloride (100-110) mmol/L Carbon Dioxide (21-32) mmol/L BUN (7-18) mg/dL Creatinine (0.55-1.02) mg/dL Est Cr Clr Drug Dosing mL/min Estimated GFR (MDRD) (>60) BUN/Creatinine Ratio (9-20) Glucose (80-116) mg/dL POC Glucose 247 H (80-116) mg/dL Calcium (8.6-10.2) mg/dL NT-Pro-B Natriuret Pep 8619 H* (<=450) pg/mL 05/09/19 Range/Units 06:35 WBC (4.5-12.0) X10-3/uL RBC (3.23-5.20) x10(6)uL Hgb (11.5-15.5) g/dL Hct (30.0-51.3) % MCV (80-96) fL MCH (27.7-33.6) pg MCHC (32.2-35.4) g/dL RDW (11.5-15.5) % Plt Count (125-369) X10(3)uL MPV (7.4-10.4) fL Add Manual Diff Neutrophils % (Manual) (46-82) % Band Neutrophils % (0-6) % Lymphocytes % (Manual) (13-37) % Monocytes % (Manual) (4-12) % Nucleated RBCs (0-0) /100WBC Sodium 141 D (135-145) mmol/L Potassium 3.4 L (3.5-5.3) mmol/L Chloride 100 (100-110) mmol/L Carbon Dioxide 33 H (21-32) mmol/L BUN 84 H (7-18) mg/dL Creatinine 2.1 H* (0.55-1.02) mg/dL Est Cr Clr Drug Dosing 19.99 mL/min Estimated GFR (MDRD) 23 L (>60) BUN/Creatinine Ratio 40.0 H (9-20) Glucose 222 H (80-116) mg/dL POC Glucose (80-116) mg/dL Calcium 8.5 L (8.6-10.2) mg/dL NT-Pro-B Natriuret Pep (<=450) pg/mL Travis Results Last 24 Hours: Microbiology 05/06/19 16:19 Urine Culture - Final Urine, Catheterized Escherichia Coli 05/06/19 14:59 Aerobic Blood Culture - Preliminary Blood - Venous NO GROWTH AFTER 2 DAYS Anaerobic Blood Culture - Preliminary NO GROWTH AFTER 2 DAYS Med Orders - Current: Current Medications Acetaminophen (Tylenol Extra Strength) 1,000 mg PO Q6H PRN PRN Reason: Pain Last Admin: 05/08/19 12:13 Dose: 1,000 mg Albuterol (Proventil Neb Soln) 2.5 mg NEB Q2H PRN PRN Reason: Shortness Of Breath/wheezing Last Admin: 05/08/19 03:52 Dose: 2.5 mg Albuterol/Ipratropium (Duoneb 3.0-0.5 Mg/3 Ml) 3 ml NEB QIDRT [facility] Last Admin: 05/09/19 06:08 Dose: 3 ml Aspirin (Ecotrin) 325 mg PO DAILY [facility] Last Admin: 05/08/19 11:50 Dose: Not Given Calcium Carbonate/Glycine (Oyster Shell Calcium) 500 mg PO DAILY [facility] Last Admin: 05/08/19 11:53 Dose: Not Given Carvedilol (Coreg) 25 mg PO BID [facility] Last Admin: 05/08/19 21:25 Dose: 25 mg Ceftriaxone Sodium (Rocephin) 1 gm IVPUSH Q24H [facility] Last Admin: 05/08/19 17:04 Dose: 1 gm Docusate Sodium (Colace) 100 mg PO BID PRN PRN Reason: Constipation Famotidine (Pepcid) 20 mg PO DAILY [facility] Last Admin: 05/08/19 11:51 Dose: Not Given Ferrous Sulfate (Ferrous Sulfate) 325 mg PO Q48H [facility] Last Admin: 05/07/19 14:42 Dose: 325 mg Fish Oil (Fish Oil) 1 gm PO TID [facility] Last Admin: 05/08/19 21:24 Dose: 1 gm Fluticasone Propionate (Flonase) 0 gm NASBOTH DAILY PRN PRN Reason: Rhinitis Furosemide (Lasix) 40 mg IVPUSH BID [facility] Last Admin: 05/08/19 21:24 Dose: 40 mg Hydralazine HCl (Apresoline) 25 mg PO BID [facility] Last Admin: 05/08/19 21:25 Dose: 25 mg Azithromycin 250 mg/ Sodium (Chloride) 250 mls @ 250 mls/hr IV Q24H [facility] Stop: 05/10/19 19:59 Last Admin: 05/08/19 18:11 Dose: 250 mls/hr Levothyroxine Sodium (Synthroid) 50 mcg PO SUTUWETHSA@0600 [facility] Last Admin: 05/09/19 06:07 Dose: 50 mcg Levothyroxine Sodium (Levothyroxine) 75 mcg PO MoFr@0600 [facility] Magnesium Chloride (Mag-64) 64 mg PO BID [facility] Last Admin: 05/08/19 21:26 Dose: 64 mg Methylprednisolone Sodium Succinate (Solu-Medrol) 125 mg IVPUSH Q8H [facility] Last Admin: 05/09/19 01:54 Dose: 125 mg Mometasone Furoate/Formoterol Fumar (Dulera 200-5 Mcg) 0 puff IH BID [facility] Last Admin: 05/08/19 21:26 Dose: 2 puff Montelukast Sodium (Singulair) 10 mg PO DAILY [facility] Last Admin: 05/08/19 11:52 Dose: Not Given Multivitamins/Minerals/Vitamin C (Tab-A-Karli) 1 tab PO DAILY [facility] Last Admin: 05/08/19 11:52 Dose: Not Given Ondansetron HCl (Zofran) 4 mg IV Q4H PRN PRN Reason: Nausea/Vomiting Potassium Chloride (Klor-Con M20) 20 meq PO BEDTIME [facility] Last Admin: 05/08/19 21:24 Dose: 20 meq Potassium Chloride (Klor-Con M20) 40 meq PO ACBREAKFAST [facility] Last Admin: 05/09/19 07:20 Dose: Not Given Simvastatin (Zocor) 40 mg PO BEDTIME [facility] Last Admin: 05/08/19 21:27 Dose: 40 mg Sodium Chloride (Saline Flush) 10 ml FLUSH ASDIRECTED PRN PRN Reason: Keep Vein Open Last Admin: 05/08/19 21:30 Dose: 10 ml Tobramycin (Tobramycin 0.3% Ophth Soln) 0 ml EYEBOTH QID [facility] Stop: 05/13/19 17:01 Last Admin: 05/08/19 21:26 Dose: 2 drop Zolpidem Tartrate (Ambien) 5 mg PO BEDTIME PRN PRN Reason: Sleep Discontinued Medications Albuterol/Ipratropium (Duoneb 3.0-0.5 Mg/3 Ml) 6 ml NEB ONETIME ONE Stop: 05/06/19 15:22 Last Admin: 05/06/19 15:36 Dose: 6 ml Calcium Carbonate/Glycine (Tums) 500 mg PO DAILY [facility] Last Admin: 05/06/19 18:32 Dose: 500 mg Clopidogrel Bisulfate (Plavix) 300 mg PO ONETIME ONE Stop: 05/07/19 08:52 Last Admin: 05/07/19 14:05 Dose: 300 mg Enoxaparin Sodium (Lovenox) 30 mg SUBCUT Q24H [facility] Last Admin: 05/06/19 18:32 Dose: 30 mg Enoxaparin Sodium (Lovenox) 150 mg SUBCUT Q24H [facility] Stop: 05/08/19 09:01 Last Admin: 05/08/19 11:51 Dose: Not Given Furosemide (Lasix) 40 mg IVPUSH BIDDIURETIC [facility] Last Admin: 05/07/19 14:30 Dose: Not Given Sodium Chloride (Normal Saline) 1,000 mls @ 125 drops/hr IV ASDIRECTED [facility] Last Admin: 05/07/19 01:25 Dose: 125 drops/hr Azithromycin 500 mg/ Sodium (Chloride) 250 mls @ 250 mls/hr IV ONETIME ONE Stop: 05/06/19 19:45 Last Admin: 05/06/19 20:05 Dose: 250 mls/hr Levothyroxine Sodium (Synthroid) 75 mcg PO MOFR@0600 [facility] Last Admin: 05/07/19 06:20 Dose: 75 mcg Methylprednisolone Sodium Succinate (Solu-Medrol) 125 mg IVPUSH ONETIME ONE Stop: 05/06/19 15:23 Last Admin: 05/06/19 15:36 Dose: 125 mg - Exam Quality Assessment: Supplemental Oxygen General: Alert, Oriented HEENT: Pupils Equal, Other (grouped vesicles of mouth,lip) Neck: Supple Lungs: Decreased Breath Sounds, Rhonchi, Wheezing Cardiovascular: Regular Rate - Problem List & Annotations (1) NSTEMI (non-ST elevated myocardial infarction) SNOMED Code(s): 21028216 Code(s): I21.4 - NON-ST ELEVATION (NSTEMI) MYOCARDIAL INFARCTION Status: Acute Current Visit: Yes (2) Asthma exacerbation SNOMED Code(s): 583872800 Code(s): J45.901 - UNSPECIFIED ASTHMA WITH (ACUTE) EXACERBATION Status: Acute Current Visit: Yes (3) Pulmonary edema SNOMED Code(s): 62576427 Code(s): J81.1 - CHRONIC PULMONARY EDEMA Status: Acute Current Visit: Yes Qualifiers: Chronicity: acute Qualified Code(s): J81.0 - Acute pulmonary edema (4) CKD (chronic kidney disease) SNOMED Code(s): 623182437 Code(s): N18.9 - CHRONIC KIDNEY DISEASE, UNSPECIFIED Status: Acute Current Visit: Yes Qualifiers: Chronic kidney disease stage: stage 3 (moderate) Qualified Code(s): N18.3 - Chronic kidney disease, stage 3 (moderate) (5) Obesities, morbid SNOMED Code(s): 201439707 Code(s): E66.01 - MORBID (SEVERE) OBESITY DUE TO EXCESS CALORIES Status: Chronic Current Visit: Yes (6) MARLON (obstructive sleep apnea) SNOMED Code(s): 63586660 Code(s): G47.33 - OBSTRUCTIVE SLEEP APNEA (ADULT) (PEDIATRIC) Status: Chronic Current Visit: Yes (7) HTN (hypertension) SNOMED Code(s): 84203119 Code(s): I10 - ESSENTIAL (PRIMARY) HYPERTENSION Status: Chronic Current Visit: Yes Qualifiers: Hypertension type: essential hypertension Qualified Code(s): I10 - Essential (primary) hypertension (8) Diabetes type 2, controlled SNOMED Code(s): 52254115, 332042227 Code(s): E11.9 - TYPE 2 DIABETES MELLITUS WITHOUT COMPLICATIONS Status: Chronic Current Visit: Yes (9) Anemia, chronic disease SNOMED Code(s): 463199887 Code(s): D63.8 - ANEMIA IN OTHER CHRONIC DISEASES CLASSIFIED ELSEWHERE Status: Chronic Current Visit: Yes (10) HLD (hyperlipidemia) SNOMED Code(s): 72816041 Code(s): E78.5 - HYPERLIPIDEMIA, UNSPECIFIED Status: Chronic Current Visit: Yes (11) Bullous impetigo SNOMED Code(s): 332416947 Code(s): L01.03 - BULLOUS IMPETIGO Status: Acute Current Visit: Yes (12) Palliative care status SNOMED Code(s): 665798595 Code(s): Z51.5 - ENCOUNTER FOR PALLIATIVE CARE Status: Acute Current Visit: Yes (13) Pneumonia SNOMED Code(s): 436891889 Code(s): J18.9 - PNEUMONIA, UNSPECIFIED ORGANISM Status: Acute Current Visit: Yes (14) Bacteriuria SNOMED Code(s): 00588732 Code(s): R82.71 - BACTERIURIA Status: Acute Current Visit: Yes (15) Herpes labialis SNOMED Code(s): 9216335 Code(s): B00.1 - HERPESVIRAL VESICULAR DERMATITIS Status: Acute Current Visit: Yes - Problem List Review Problem List Initiated/Reviewed/Updated: Yes - My Orders Last 24 Hours: My Active Orders 05/09/19 09:00 valACYclovir [Valtrex] 2,000 mg PO BID 05/10/19 05:11 COMPREHENSIVE METABOLIC PN,CMP [CHEM] AM 05/10/19 06:11 PRO B-TYPE NATRIUR PEPT,BNPPRO [CHEM] DAILY - Plan Plan:: We will continue with current IV therapy, including Solu-Medrol, antibiotics and Lasix. I've added Valtrex for the herpes labialis. I will switch to oral medications tomorrow. After repeat of labs and x-ray.
[2019-05-09] MEDS: Acetaminophen 500 MG Tab PO PRN ×2 (09:48→17:54)
[2019-05-09] MEDS: Fish Oil/Omega-3 Fatty Acids 1 Gm Cap PO SCH ×3 (09:49→21:28)
[2019-05-09] MEDS: hydrALAZINE 25 MG Tab PO SCH ×2 (09:49→21:27)
[2019-05-09] MEDS: Aspirin 325 MG Tab.EC PO SCH (09:49)
[2019-05-09] MEDS: Calcium Carbonate 500 MG Tablet PO SCH (09:49)
[2019-05-09] MEDS: Famotidine 20 MG Tab PO SCH (09:49)
[2019-05-09] MEDS: Magnesium Chloride 64 MG Tab.ER PO SCH ×2 (09:49→21:29)
[2019-05-09] MEDS: Furosemide 40 MG/4 ML VIAL IVPUSH SCH ×2 (09:49→21:29)
[2019-05-09] MEDS: Multivitamin Tab PO SCH (09:51)
[2019-05-09] MEDS: Carvedilol 25 MG Tab PO SCH ×2 (09:52→21:27)
[2019-05-09] MEDS: Montelukast 10 MG Tab PO SCH (09:52)
[2019-05-09] MEDS: Formoterol/Mometasone 200-5 MCG 8.8 GM Inhaler IH SCH ×2 (09:53→21:27)
[2019-05-09] MEDS: Tobramycin 0.3% Ophth Drops 5 ML Bottle EYEBOTH SCH ×4 (09:54→21:29)
[2019-05-09] MEDS: Sodium Chloride 0.9% 10 ML Syringe FLUSH PRN ×5 (09:59→21:37)
[2019-05-09] MEDS: Ferrous Sulfate 325 MG Tab PO SCH (13:21)
[2019-05-09] MEDS: valACYclovir 500 MG Tab PO SCH ×2 (15:15→22:42)
[2019-05-09] MEDS: cefTRIAXone 1 GM Vial IVPUSH SCH (16:16)
[2019-05-09] MEDS: Azithromycin 250 MG in Sodium Chloride 0.9% 250 ML IV SCH (18:41)
[2019-05-09] MEDS: Simvastatin 40 MG Tab PO SCH (21:30)
[2019-05-10] MEDS: methylPREDNISolone Sodium Succinate 125 MG/2 ML SDV IVPUSH SCH ×2 (01:36→09:27)
[2019-05-10] MEDS: Sodium Chloride 0.9% 10 ML Syringe FLUSH PRN ×4 (01:37→18:36)
[2019-05-10] MEDS ORDERED: Levothyroxine 75 MCG Tab PO SCH (06:00)
[2019-05-10] MEDS: Albuterol/Ipratropium 3.0-0.5 MG/3 ML Neb Soln NEB SCH ×4 (06:29→20:53)
[2019-05-10] MEDS: Potassium Chloride 20 MEQ Tab.ER PO SCH ×2 (06:29→20:54)
[2019-05-10] MEDS: Furosemide 40 MG/4 ML VIAL IVPUSH SCH (09:15)
[2019-05-10] MEDS: hydrALAZINE 25 MG Tab PO SCH ×2 (09:19→20:52)
[2019-05-10] MEDS: Formoterol/Mometasone 200-5 MCG 8.8 GM Inhaler IH SCH ×2 (09:20→20:53)
[2019-05-10] MEDS: Carvedilol 25 MG Tab PO SCH ×2 (09:20→20:53)
[2019-05-10] MEDS: Calcium Carbonate 500 MG Tablet PO SCH (09:21)
[2019-05-10] MEDS: Montelukast 10 MG Tab PO SCH (09:21)
[2019-05-10] MEDS: Magnesium Chloride 64 MG Tab.ER PO SCH ×2 (09:21→20:55)
[2019-05-10] MEDS: Fish Oil/Omega-3 Fatty Acids 1 Gm Cap PO SCH ×3 (09:21→20:54)
[2019-05-10] MEDS: Aspirin 325 MG Tab.EC PO SCH (09:21)
[2019-05-10] MEDS: Multivitamin Tab PO SCH (09:21)
--- NOTE | 2019-05-10 09:22 | PCM.PN ---
- General Info Date of Service: 05/10/19 Subjective Update: Ms. Guerrero is made progress, now she is off O2. Cough and wheezing improved. No fever and no chest pain. Functional Status: Reports: Pain Controlled - Review of Systems General: Reports: No Symptoms HEENT: Reports: No Symptoms Cardiovascular: Reports: Dyspnea on Exertion, PND Gastrointestinal: Reports: No Symptoms Musculoskeletal: Reports: No Symptoms - Patient Data Vitals - Most Recent: Last Vital Signs Temp 98.4 F 05/10/19 00:00 Pulse 67 05/10/19 00:00 Resp 20 05/10/19 00:00 BP 132/72 05/10/19 00:00 Pulse Ox 94 L 05/10/19 00:00 Weight - Most Recent: 156.081 kg I&O - Last 24 Hours: Intake & Output 05/09/19 05/10/19 05/10/19 22:59 06:59 14:59 Intake Total 700 Output Total 1400 2500 Balance -700 -2500 Lab Results Last 24 Hours: Laboratory Results - last 24 hr 05/09/19 05/10/19 05/10/19 Range/Units 17:48 06:40 06:40 Sodium 144 (135-145) mmol/L Potassium 3.5 (3.5-5.3) mmol/L Chloride 101 (100-110) mmol/L Carbon Dioxide 34 H (21-32) mmol/L BUN 85 H (7-18) mg/dL Creatinine 2.1 H* (0.55-1.02) mg/dL Est Cr Clr Drug Dosing 19.99 mL/min Estimated GFR (MDRD) 23 L (>60) BUN/Creatinine Ratio 40.5 H (9-20) Glucose 244 H (80-116) mg/dL POC Glucose 226 H (80-116) mg/dL Calcium 8.5 L (8.6-10.2) mg/dL Total Bilirubin 0.6 (0.1-1.3) mg/dL AST 41 H D (5-25) IU/L ALT 61 H D (12-36) U/L Alkaline Phosphatase 103 (56-112) IU/L NT-Pro-B Natriuret Pep 8112 H* (<=450) pg/mL Total Protein 6.3 (6.0-8.0) g/dL Albumin 2.5 L (3.2-4.6) g/dL Globulin 3.8 g/dL Albumin/Globulin Ratio 0.7 Travis Results Last 24 Hours: Microbiology 05/06/19 14:59 Aerobic Blood Culture - Preliminary Blood - Venous NO GROWTH AFTER 3 DAYS Anaerobic Blood Culture - Preliminary NO GROWTH AFTER 3 DAYS Med Orders - Current: Current Medications Acetaminophen (Tylenol Extra Strength) 1,000 mg PO Q6H PRN PRN Reason: Pain Last Admin: 05/09/19 17:54 Dose: 1,000 mg Albuterol (Proventil Neb Soln) 2.5 mg NEB Q2H PRN PRN Reason: Shortness Of Breath/wheezing Last Admin: 05/08/19 03:52 Dose: 2.5 mg Albuterol/Ipratropium (Duoneb 3.0-0.5 Mg/3 Ml) 3 ml NEB QIDRT [facility] Last Admin: 05/10/19 06:29 Dose: 3 ml Amoxicillin/Clavulanate Potassium (Augmentin 875 Mg/125 Mg) 1 tab PO Q12HR [facility] Aspirin (Ecotrin) 325 mg PO DAILY [facility] Last Admin: 05/09/19 09:49 Dose: 325 mg Calcium Carbonate/Glycine (Oyster Shell Calcium) 500 mg PO DAILY [facility] Last Admin: 05/09/19 09:49 Dose: 500 mg Carvedilol (Coreg) 25 mg PO BID [facility] Last Admin: 05/09/19 21:27 Dose: 25 mg Docusate Sodium (Colace) 100 mg PO BID PRN PRN Reason: Constipation Famotidine (Pepcid) 20 mg PO DAILY [facility] Last Admin: 05/09/19 09:49 Dose: 20 mg Ferrous Sulfate (Ferrous Sulfate) 325 mg PO Q48H [facility] Last Admin: 05/09/19 13:21 Dose: 325 mg Fish Oil (Fish Oil) 1 gm PO TID [facility] Last Admin: 05/09/19 21:28 Dose: 1 gm Fluticasone Propionate (Flonase) 0 gm NASBOTH DAILY PRN PRN Reason: Rhinitis Furosemide (Lasix) 40 mg PO BIDDIURETIC [facility] Hydralazine HCl (Apresoline) 25 mg PO BID [facility] Last Admin: 05/09/19 21:27 Dose: 25 mg Azithromycin 250 mg/ Sodium (Chloride) 250 mls @ 250 mls/hr IV Q24H [facility] Stop: 05/10/19 19:59 Last Admin: 12/08/19 18:41 Dose: 250 mls/hr Levothyroxine Sodium (Synthroid) 50 mcg PO SUTUWETHSA@0600 [facility] Last Admin: 05/09/19 06:07 Dose: 50 mcg Levothyroxine Sodium (Levothyroxine) 75 mcg PO MoFr@0600 [facility] Last Admin: 05/10/19 06:28 Dose: 75 mcg Magnesium Chloride (Mag-64) 64 mg PO BID [facility] Last Admin: 05/09/19 21:29 Dose: 64 mg Mometasone Furoate/Formoterol Fumar (Dulera 200-5 Mcg) 0 puff IH BID [facility] Last Admin: 05/09/19 21:27 Dose: 2 puff Montelukast Sodium (Singulair) 10 mg PO DAILY [facility] Last Admin: 05/09/19 09:52 Dose: 10 mg Multivitamins/Minerals/Vitamin C (Tab-A-Karli) 1 tab PO DAILY [facility] Last Admin: 05/09/19 09:51 Dose: 1 tab Ondansetron HCl (Zofran) 4 mg IV Q4H PRN PRN Reason: Nausea/Vomiting Potassium Chloride (Klor-Con M20) 20 meq PO BEDTIME [facility] Last Admin: 05/09/19 21:28 Dose: 20 meq Potassium Chloride (Klor-Con M20) 40 meq PO ACBREAKFAST [facility] Last Admin: 05/10/19 06:29 Dose: 40 meq Prednisone (Prednisone) 20 mg PO BID [facility] Simvastatin (Zocor) 40 mg PO BEDTIME [facility] Last Admin: 05/09/19 21:30 Dose: 40 mg Sodium Chloride (Saline Flush) 10 ml FLUSH ASDIRECTED PRN PRN Reason: Keep Vein Open Last Admin: 05/10/19 09:15 Dose: 10 ml Tobramycin (Tobramycin 0.3% Ophth Soln) 0 ml EYEBOTH QID [facility] Stop: 05/13/19 17:01 Last Admin: 05/09/19 21:29 Dose: 2 drop Zolpidem Tartrate (Ambien) 5 mg PO BEDTIME PRN PRN Reason: Sleep Discontinued Medications Albuterol/Ipratropium (Duoneb 3.0-0.5 Mg/3 Ml) 6 ml NEB ONETIME ONE Stop: 05/06/19 15:22 Last Admin: 05/06/19 15:36 Dose: 6 ml Calcium Carbonate/Glycine (Tums) 500 mg PO DAILY [facility] Last Admin: 05/06/19 18:32 Dose: 500 mg Ceftriaxone Sodium (Rocephin) 1 gm IVPUSH Q24H [facility] Last Admin: 05/09/19 16:16 Dose: 1 gm Clopidogrel Bisulfate (Plavix) 300 mg PO ONETIME ONE Stop: 05/07/19 08:52 Last Admin: 05/07/19 14:05 Dose: 300 mg Enoxaparin Sodium (Lovenox) 30 mg SUBCUT Q24H [facility] Last Admin: 05/06/19 18:32 Dose: 30 mg Enoxaparin Sodium (Lovenox) 150 mg SUBCUT Q24H [facility] Stop: 05/08/19 09:01 Last Admin: 05/08/19 11:51 Dose: Not Given Furosemide (Lasix) 40 mg IVPUSH BIDDIURETIC [facility] Last Admin: 05/07/19 14:30 Dose: Not Given Furosemide (Lasix) 40 mg IVPUSH BID [facility] Last Admin: 05/10/19 09:15 Dose: 40 mg Sodium Chloride (Normal Saline) 1,000 mls @ 125 drops/hr IV ASDIRECTED [facility] Last Admin: 05/07/19 01:25 Dose: 125 drops/hr Azithromycin 500 mg/ Sodium (Chloride) 250 mls @ 250 mls/hr IV ONETIME ONE Stop: 05/06/19 19:45 Last Admin: 05/06/19 20:05 Dose: 250 mls/hr Levothyroxine Sodium (Synthroid) 75 mcg PO MOFR@0600 [facility] Last Admin: 05/07/19 06:20 Dose: 75 mcg Methylprednisolone Sodium Succinate (Solu-Medrol) 125 mg IVPUSH ONETIME ONE Stop: 05/06/19 15:23 Last Admin: 05/06/19 15:36 Dose: 125 mg Methylprednisolone Sodium Succinate (Solu-Medrol) 125 mg IVPUSH Q8H [facility] Last Admin: 05/10/19 01:36 Dose: 125 mg Valacyclovir HCl (Valtrex) 500 mg PO BID@1400,2200 [facility] Stop: 05/10/19 22:01 Valacyclovir HCl (Valtrex) 500 mg PO BID@1500,2200 [facility] Stop: 05/09/19 22:01 Last Admin: 05/09/19 22:42 Dose: 500 mg - Exam Quality Assessment: Supplemental Oxygen General: Alert HEENT: Pupils Equal Neck: Supple Lungs: Crackles, Rales Cardiovascular: Regular Rate, Regular Rhythm (Female) Exam: Deferred - Problem List & Annotations (1) NSTEMI (non-ST elevated myocardial infarction) SNOMED Code(s): 31848486 Code(s): I21.4 - NON-ST ELEVATION (NSTEMI) MYOCARDIAL INFARCTION Status: Acute Current Visit: Yes (2) Asthma exacerbation SNOMED Code(s): 790429444 Code(s): J45.901 - UNSPECIFIED ASTHMA WITH (ACUTE) EXACERBATION Status: Acute Current Visit: Yes (3) Pulmonary edema SNOMED Code(s): 10151734 Code(s): J81.1 - CHRONIC PULMONARY EDEMA Status: Acute Current Visit: Yes Qualifiers: Chronicity: acute Qualified Code(s): J81.0 - Acute pulmonary edema (4) CKD (chronic kidney disease) SNOMED Code(s): 086150170 Code(s): N18.9 - CHRONIC KIDNEY DISEASE, UNSPECIFIED Status: Acute Current Visit: Yes Qualifiers: Chronic kidney disease stage: stage 3 (moderate) Qualified Code(s): N18.3 - Chronic kidney disease, stage 3 (moderate) (5) Obesities, morbid SNOMED Code(s): 198998850 Code(s): E66.01 - MORBID (SEVERE) OBESITY DUE TO EXCESS CALORIES Status: Chronic Current Visit: Yes (6) MARLON (obstructive sleep apnea) SNOMED Code(s): 71372952 Code(s): G47.33 - OBSTRUCTIVE SLEEP APNEA (ADULT) (PEDIATRIC) Status: Chronic Current Visit: Yes (7) HTN (hypertension) SNOMED Code(s): 52977356 Code(s): I10 - ESSENTIAL (PRIMARY) HYPERTENSION Status: Chronic Current Visit: Yes Qualifiers: Hypertension type: essential hypertension Qualified Code(s): I10 - Essential (primary) hypertension (8) Diabetes type 2, controlled SNOMED Code(s): 72390399, 350814514 Code(s): E11.9 - TYPE 2 DIABETES MELLITUS WITHOUT COMPLICATIONS Status: Chronic Current Visit: Yes (9) Anemia, chronic disease SNOMED Code(s): 673574752 Code(s): D63.8 - ANEMIA IN OTHER CHRONIC DISEASES CLASSIFIED ELSEWHERE Status: Chronic Current Visit: Yes (10) HLD (hyperlipidemia) SNOMED Code(s): 81061051 Code(s): E78.5 - HYPERLIPIDEMIA, UNSPECIFIED Status: Chronic Current Visit: Yes (11) Bullous impetigo SNOMED Code(s): 998029043 Code(s): L01.03 - BULLOUS IMPETIGO Status: Acute Current Visit: Yes (12) Palliative care status SNOMED Code(s): 809458581 Code(s): Z51.5 - ENCOUNTER FOR PALLIATIVE CARE Status: Acute Current Visit: Yes (13) Pneumonia SNOMED Code(s): 550861432 Code(s): J18.9 - PNEUMONIA, UNSPECIFIED ORGANISM Status: Acute Current Visit: Yes (14) Bacteriuria SNOMED Code(s): 21315391 Code(s): R82.71 - BACTERIURIA Status: Acute Current Visit: Yes (15) Herpes labialis SNOMED Code(s): 6690488 Code(s): B00.1 - HERPESVIRAL VESICULAR DERMATITIS Status: Acute Current Visit: Yes - Problem List Review Problem List Initiated/Reviewed/Updated: Yes - My Orders Last 24 Hours: My Active Orders 05/10/19 09:30 Amoxicillin/Clavulanate K [Augmentin 875 MG/125 MG] 1 tab PO Q12HR 05/10/19 14:00 Furosemide [Lasix] 40 mg PO BIDDIURETIC 05/10/19 21:00 predniSONE 20 mg PO BID - Plan Plan:: With the above improvement, my plan is to switch her to oral medications today. I will start oral Lasix, oral Augmentin and prednisone. Discontinue Razo. Continue physical therapy. Discharge in 1-2 days.
[2019-05-10] MEDS: Tobramycin 0.3% Ophth Drops 5 ML Bottle EYEBOTH SCH ×4 (09:23→20:56)
[2019-05-10] MEDS: Famotidine 20 MG Tab PO SCH (09:27)
[2019-05-10] MEDS: Amoxicillin/Clavulanate K 875-125 MG Tab PO SCH ×2 (10:35→20:57)
[2019-05-10] MEDS: Acetaminophen 500 MG Tab PO PRN ×2 (10:35→17:20)
[2019-05-10] MEDS: Furosemide 40 MG Tab PO SCH (13:59)
[2019-05-10] MEDS ORDERED: valACYclovir 500 MG Tab PO SCH (14:00)
[2019-05-10] MEDS: Azithromycin 250 MG in Sodium Chloride 0.9% 250 ML IV SCH (18:34)
[2019-05-10] MEDS: predniSONE 20 MG Tab PO SCH (20:56)
[2019-05-10] MEDS: Simvastatin 40 MG Tab PO SCH (20:56)
[2019-05-11] MEDS: Levothyroxine 50 MCG Tab PO SCH (06:43)
[2019-05-11] MEDS: Albuterol/Ipratropium 3.0-0.5 MG/3 ML Neb Soln NEB SCH ×4 (06:44→20:17)
[2019-05-11] MEDS: Potassium Chloride 20 MEQ Tab.ER PO SCH ×2 (06:53→20:12)
[2019-05-11] MEDS: Furosemide 40 MG Tab PO SCH ×2 (07:49→13:01)
--- NOTE | 2019-05-11 08:52 | PCM.PN ---
- General Info Date of Service: 05/11/19 Subjective Update: Ms Guerrero feels weak this morning ,though has been walking the meneses, and holding up her oxygenation despite dyspnea. She denies any chest pain, fever, or chills. - Review of Systems HEENT: Reports: No Symptoms Gastrointestinal: Reports: No Symptoms Genitourinary: Reports: No Symptoms Musculoskeletal: Reports: No Symptoms - Patient Data Vitals - Most Recent: Last Vital Signs Temp 97.8 F 05/11/19 01:00 Pulse 58 L 05/11/19 07:00 Resp 20 05/11/19 01:00 BP 148/62 H 05/11/19 01:00 Pulse Ox 95 05/11/19 01:00 Weight - Most Recent: 156.121 kg I&O - Last 24 Hours: Intake & Output 05/10/19 05/11/19 05/11/19 22:59 06:59 14:59 Intake Total 250 200 Output Total 400 1000 Balance -150 -800 Lab Results Last 24 Hours: Laboratory Results - last 24 hr 05/10/19 Range/Units 17:42 POC Glucose 260 H (80-116) mg/dL Travis Results Last 24 Hours: Microbiology 05/06/19 16:00 Aerobic Blood Culture - Preliminary Blood - Venous - Lab Draw NO GROWTH AFTER 4 DAYS Anaerobic Blood Culture - Preliminary NO GROWTH AFTER 4 DAYS 05/06/19 14:59 Aerobic Blood Culture - Preliminary Blood - Venous NO GROWTH AFTER 4 DAYS Anaerobic Blood Culture - Preliminary NO GROWTH AFTER 4 DAYS Med Orders - Current: Current Medications Acetaminophen (Tylenol Extra Strength) 1,000 mg PO Q6H PRN PRN Reason: Pain Last Admin: 05/10/19 17:20 Dose: 1,000 mg Albuterol (Proventil Neb Soln) 2.5 mg NEB Q2H PRN PRN Reason: Shortness Of Breath/wheezing Last Admin: 05/08/19 03:52 Dose: 2.5 mg Albuterol/Ipratropium (Duoneb 3.0-0.5 Mg/3 Ml) 3 ml NEB QIDRT [facility] Last Admin: 05/11/19 06:44 Dose: 3 ml Amoxicillin/Clavulanate Potassium (Augmentin 875 Mg/125 Mg) 1 tab PO Q12H [facility] Last Admin: 05/10/19 20:57 Dose: 1 tab Aspirin (Ecotrin) 325 mg PO DAILY [facility] Last Admin: 05/10/19 09:21 Dose: 325 mg Calcium Carbonate/Glycine (Oyster Shell Calcium) 500 mg PO DAILY [facility] Last Admin: 05/10/19 09:21 Dose: 500 mg Carvedilol (Coreg) 25 mg PO BID [facility] Last Admin: 05/10/19 20:53 Dose: 25 mg Docusate Sodium (Colace) 100 mg PO BID PRN PRN Reason: Constipation Last Admin: 05/10/19 10:35 Dose: 100 mg Famotidine (Pepcid) 20 mg PO DAILY [facility] Last Admin: 05/10/19 09:27 Dose: 20 mg Ferrous Sulfate (Ferrous Sulfate) 325 mg PO Q48H [facility] Last Admin: 05/09/19 13:21 Dose: 325 mg Fish Oil (Fish Oil) 1 gm PO TID [facility] Last Admin: 05/10/19 20:54 Dose: 1 gm Fluticasone Propionate (Flonase) 0 gm NASBOTH DAILY PRN PRN Reason: Rhinitis Furosemide (Lasix) 40 mg PO BIDDIURETIC [facility] Last Admin: 05/11/19 07:49 Dose: 40 mg Hydralazine HCl (Apresoline) 25 mg PO BID [facility] Last Admin: 05/10/19 20:52 Dose: 25 mg Levothyroxine Sodium (Synthroid) 50 mcg PO SUTUWETHSA@0600 [facility] Last Admin: 05/11/19 06:43 Dose: 50 mcg Levothyroxine Sodium (Levothyroxine) 75 mcg PO MoFr@0600 [facility] Last Admin: 05/10/19 06:28 Dose: 75 mcg Magnesium Chloride (Mag-64) 64 mg PO BID [facility] Last Admin: 05/10/19 20:55 Dose: 64 mg Mometasone Furoate/Formoterol Fumar (Dulera 200-5 Mcg) 0 puff IH BID [facility] Last Admin: 05/10/19 20:53 Dose: 2 puff Montelukast Sodium (Singulair) 10 mg PO DAILY [facility] Last Admin: 05/10/19 09:21 Dose: 10 mg Multivitamins/Minerals/Vitamin C (Tab-A-Karli) 1 tab PO DAILY [facility] Last Admin: 05/10/19 09:21 Dose: 1 tab Ondansetron HCl (Zofran) 4 mg IV Q4H PRN PRN Reason: Nausea/Vomiting Potassium Chloride (Klor-Con M20) 20 meq PO BEDTIME [facility] Last Admin: 05/10/19 20:54 Dose: 20 meq Potassium Chloride (Klor-Con M20) 40 meq PO ACBREAKFAST [facility] Last Admin: 05/11/19 06:53 Dose: 40 meq Prednisone (Prednisone) 20 mg PO BID [facility] Last Admin: 05/10/19 20:56 Dose: 20 mg Simvastatin (Zocor) 40 mg PO BEDTIME [facility] Last Admin: 05/10/19 20:56 Dose: 40 mg Sodium Chloride (Saline Flush) 10 ml FLUSH ASDIRECTED PRN PRN Reason: Keep Vein Open Last Admin: 05/10/19 18:36 Dose: 10 ml Tobramycin (Tobramycin 0.3% Ophth Soln) 0 ml EYEBOTH QID [facility] Stop: 05/13/19 17:01 Last Admin: 05/10/19 20:56 Dose: 2 drop Zolpidem Tartrate (Ambien) 5 mg PO BEDTIME PRN PRN Reason: Sleep Discontinued Medications Albuterol/Ipratropium (Duoneb 3.0-0.5 Mg/3 Ml) 6 ml NEB ONETIME ONE Stop: 05/06/19 15:22 Last Admin: 05/06/19 15:36 Dose: 6 ml Calcium Carbonate/Glycine (Tums) 500 mg PO DAILY [facility] Last Admin: 05/06/19 18:32 Dose: 500 mg Ceftriaxone Sodium (Rocephin) 1 gm IVPUSH Q24H [facility] Last Admin: 05/09/19 16:16 Dose: 1 gm Clopidogrel Bisulfate (Plavix) 300 mg PO ONETIME ONE Stop: 05/07/19 08:52 Last Admin: 05/07/19 14:05 Dose: 300 mg Enoxaparin Sodium (Lovenox) 30 mg SUBCUT Q24H [facility] Last Admin: 05/06/19 18:32 Dose: 30 mg Enoxaparin Sodium (Lovenox) 150 mg SUBCUT Q24H [facility] Stop: 05/08/19 09:01 Last Admin: 05/08/19 11:51 Dose: Not Given Furosemide (Lasix) 40 mg IVPUSH BIDDIURETIC [facility] Last Admin: 05/07/19 14:30 Dose: Not Given Furosemide (Lasix) 40 mg IVPUSH BID [facility] Last Admin: 05/10/19 09:15 Dose: 40 mg Sodium Chloride (Normal Saline) 1,000 mls @ 125 drops/hr IV ASDIRECTED [facility] Last Admin: 05/07/19 01:25 Dose: 125 drops/hr Azithromycin 500 mg/ Sodium (Chloride) 250 mls @ 250 mls/hr IV ONETIME ONE Stop: 05/06/19 19:45 Last Admin: 05/06/19 20:05 Dose: 250 mls/hr Azithromycin 250 mg/ Sodium (Chloride) 250 mls @ 250 mls/hr IV Q24H [facility] Stop: 05/10/19 19:59 Last Admin: 05/10/19 18:34 Dose: 250 mls/hr Levothyroxine Sodium (Synthroid) 75 mcg PO MOFR@0600 [facility] Last Admin: 05/07/19 06:20 Dose: 75 mcg Methylprednisolone Sodium Succinate (Solu-Medrol) 125 mg IVPUSH ONETIME ONE Stop: 05/06/19 15:23 Last Admin: 05/06/19 15:36 Dose: 125 mg Methylprednisolone Sodium Succinate (Solu-Medrol) 125 mg IVPUSH Q8H [facility] Last Admin: 05/10/19 09:27 Dose: 125 mg Valacyclovir HCl (Valtrex) 500 mg PO BID@1400,2200 [facility] Stop: 05/10/19 22:01 Valacyclovir HCl (Valtrex) 500 mg PO BID@1500,2200 [facility] Stop: 05/09/19 22:01 Last Admin: 05/09/19 22:42 Dose: 500 mg - Exam General: Alert, Oriented, Cooperative Neck: Supple Lungs: Rhonchi Cardiovascular: Regular Rate Skin: Warm, Dry Psy/Mental Status: Alert, Normal Affect - Problem List & Annotations (1) NSTEMI (non-ST elevated myocardial infarction) SNOMED Code(s): 75185513 Code(s): I21.4 - NON-ST ELEVATION (NSTEMI) MYOCARDIAL INFARCTION Status: Acute Current Visit: Yes (2) Asthma exacerbation SNOMED Code(s): 854069837 Code(s): J45.901 - UNSPECIFIED ASTHMA WITH (ACUTE) EXACERBATION Status: Acute Current Visit: Yes Qualifiers: Asthma severity: moderate (3) Pulmonary edema SNOMED Code(s): 45346985 Code(s): J81.1 - CHRONIC PULMONARY EDEMA Status: Acute Current Visit: Yes Qualifiers: Chronicity: acute Qualified Code(s): J81.0 - Acute pulmonary edema (4) CKD (chronic kidney disease) SNOMED Code(s): 568113319 Code(s): N18.9 - CHRONIC KIDNEY DISEASE, UNSPECIFIED Status: Acute Current Visit: Yes Qualifiers: Chronic kidney disease stage: stage 3 (moderate) Qualified Code(s): N18.3 - Chronic kidney disease, stage 3 (moderate) (5) Obesities, morbid SNOMED Code(s): 319835973 Code(s): E66.01 - MORBID (SEVERE) OBESITY DUE TO EXCESS CALORIES Status: Chronic Current Visit: Yes (6) MARLON (obstructive sleep apnea) SNOMED Code(s): 52609619 Code(s): G47.33 - OBSTRUCTIVE SLEEP APNEA (ADULT) (PEDIATRIC) Status: Chronic Current Visit: Yes (7) HTN (hypertension) SNOMED Code(s): 99984336 Code(s): I10 - ESSENTIAL (PRIMARY) HYPERTENSION Status: Chronic Current Visit: Yes Qualifiers: Hypertension type: essential hypertension Qualified Code(s): I10 - Essential (primary) hypertension (8) Diabetes type 2, controlled SNOMED Code(s): 02722184, 588172343 Code(s): E11.9 - TYPE 2 DIABETES MELLITUS WITHOUT COMPLICATIONS Status: Chronic Current Visit: Yes (9) Anemia, chronic disease SNOMED Code(s): 744430120 Code(s): D63.8 - ANEMIA IN OTHER CHRONIC DISEASES CLASSIFIED ELSEWHERE Status: Chronic Current Visit: Yes (10) HLD (hyperlipidemia) SNOMED Code(s): 95633621 Code(s): E78.5 - HYPERLIPIDEMIA, UNSPECIFIED Status: Chronic Current Visit: Yes (11) Bullous impetigo SNOMED Code(s): 733149383 Code(s): L01.03 - BULLOUS IMPETIGO Status: Acute Current Visit: Yes (12) Palliative care status SNOMED Code(s): 547504160 Code(s): Z51.5 - ENCOUNTER FOR PALLIATIVE CARE Status: Acute Current Visit: Yes (13) Pneumonia SNOMED Code(s): 418374157 Code(s): J18.9 - PNEUMONIA, UNSPECIFIED ORGANISM Status: Acute Current Visit: Yes (14) Bacteriuria SNOMED Code(s): 00818446 Code(s): R82.71 - BACTERIURIA Status: Acute Current Visit: Yes (15) Herpes labialis SNOMED Code(s): 1476946 Code(s): B00.1 - HERPESVIRAL VESICULAR DERMATITIS Status: Acute Current Visit: Yes - Problem List Review Problem List Initiated/Reviewed/Updated: Yes - My Orders Last 24 Hours: My Active Orders 05/10/19 09:30 Amoxicillin/Clavulanate K [Augmentin 875 MG/125 MG] 1 tab PO Q12H 05/10/19 14:00 Furosemide [Lasix] 40 mg PO BIDDIURETIC 05/10/19 21:00 predniSONE 20 mg PO BID - Plan Plan:: I will obtain a chest x-ray today. We'll continue to oral prednisone and antibiotics. Repeat labs in the morning, prepare for discharge tomorrow morning
[2019-05-11] MEDS: Aspirin 325 MG Tab.EC PO SCH (09:07)
[2019-05-11] MEDS: Multivitamin Tab PO SCH (09:07)
[2019-05-11] MEDS: Magnesium Chloride 64 MG Tab.ER PO SCH ×2 (09:07→20:13)
[2019-05-11] MEDS: Fish Oil/Omega-3 Fatty Acids 1 Gm Cap PO SCH ×3 (09:07→20:12)
[2019-05-11] MEDS: predniSONE 20 MG Tab PO SCH ×2 (09:07→20:13)
[2019-05-11] MEDS: Famotidine 20 MG Tab PO SCH (09:07)
[2019-05-11] MEDS: Montelukast 10 MG Tab PO SCH (09:08)
[2019-05-11] MEDS: Formoterol/Mometasone 200-5 MCG 8.8 GM Inhaler IH SCH ×2 (09:08→20:17)
[2019-05-11] MEDS: hydrALAZINE 25 MG Tab PO SCH ×2 (09:08→20:10)
[2019-05-11] MEDS: Carvedilol 25 MG Tab PO SCH ×2 (09:08→20:11)
[2019-05-11] MEDS: Calcium Carbonate 500 MG Tablet PO SCH (09:08)
[2019-05-11] MEDS: Tobramycin 0.3% Ophth Drops 5 ML Bottle EYEBOTH SCH ×4 (09:09→20:14)
[2019-05-11] MEDS: Amoxicillin/Clavulanate K 875-125 MG Tab PO SCH ×2 (09:10→20:49)
[2019-05-11] MEDS: Ferrous Sulfate 325 MG Tab PO SCH (13:01)
--- NOTE | 2019-05-11 19:14 | CR ---
INDICATION: Cough. CHEST, TWO VIEWS: PA and lateral views of the chest 05/11/19 were compared with 05/06/19. The heart is at the upper limits of normal in size or minimally enlarged. The aorta is tortuous with calcification in the arch. Bridging hyperostotic changes are noted in the mid and lower thoracic spine and to a lesser extent in the upper thoracic spine with a minimal dextroconvex scoliosis. Reverse shoulder arthroplasty is again noted. A definite active infiltrate or effusion was not identified. There is a degree of hyperaeration with prominent AP diameter, raising question of COPD - correlate clinically. Upper lung field pulmonary vasculature also appears to be slightly prominent, raising question of a mild or early CHF. IMPRESSION: 1. ASHD with possible mild or early CHF - correlate clinically. 2. Probable COPD - correlate clinically. 3. Degenerative changes and scoliosis spine. 4. Reverse shoulder arthroplasty on the right. MTDD
[2019-05-11] MEDS: Simvastatin 40 MG Tab PO SCH (20:15)
[2019-05-11] MEDS: Acetaminophen 500 MG Tab PO PRN (20:49)
[2019-05-12] MEDS: Levothyroxine 50 MCG Tab PO SCH (05:28)
[2019-05-12] MEDS: Albuterol/Ipratropium 3.0-0.5 MG/3 ML Neb Soln NEB SCH (06:06)
[2019-05-12] MEDS: Furosemide 40 MG Tab PO SCH (08:08)
[2019-05-12] MEDS: Potassium Chloride 20 MEQ Tab.ER PO SCH (08:08)
[2019-05-12] MEDS: Carvedilol 25 MG Tab PO SCH (08:09)
[2019-05-12] MEDS: hydrALAZINE 25 MG Tab PO SCH (08:09)
[2019-05-12] MEDS: Formoterol/Mometasone 200-5 MCG 8.8 GM Inhaler IH SCH (08:09)
[2019-05-12] MEDS: Aspirin 325 MG Tab.EC PO SCH (08:10)
[2019-05-12] MEDS: Fish Oil/Omega-3 Fatty Acids 1 Gm Cap PO SCH (08:10)
[2019-05-12] MEDS: Calcium Carbonate 500 MG Tablet PO SCH (08:10)
[2019-05-12] MEDS: Magnesium Chloride 64 MG Tab.ER PO SCH (08:10)
[2019-05-12] MEDS: predniSONE 20 MG Tab PO SCH (08:11)
[2019-05-12] MEDS: Famotidine 20 MG Tab PO SCH (08:11)
[2019-05-12] MEDS: Multivitamin Tab PO SCH (08:11)
[2019-05-12] MEDS: Tobramycin 0.3% Ophth Drops 5 ML Bottle EYEBOTH SCH (08:11)
[2019-05-12] MEDS: Montelukast 10 MG Tab PO SCH (08:11)
[2019-05-12 08:12] VITALS: BP 132/80; PULSE 67
[2019-05-12] MEDS: Amoxicillin/Clavulanate K 875-125 MG Tab PO SCH (08:46)
--- NOTE | 2019-05-13 09:38 | DISCH ---
DISCHARGE DATE: 05/12/2019 ADMISSION/DISCHARGE DIAGNOSES: 1. Cellulitis of the right upper extremity. 2. Urinary tract infection. 3. Non-ST elevation HI. 4. Congestive heart failure exacerbation. 5. COPD exacerbation. 6. Acute on chronic kidney injury. 7. Pneumonia. 8. Obesity. 9. Type 2 diabetes. BRIEF HISTORY AND HOSPITAL COURSE: A 74-year-old female who came in with her son with progressive cough, shortness of breath with no fever or chills. She did not have any chest pain. She was so weak she was unable to get out of bed. She has a history of asthma, peripheral edema, obesity. Upon admission, she was found to have a very high troponin, although the EKG did not show any ST changes. Chest x-ray showed pneumonia, possibly with pulmonary vascular congestion. Also of note is that a urine culture grew E. coli that was sensitive to cephalosporins and penicillin. She was started on Rocephin and azithromycin, along with Lasix and Solu-Medrol, and improved progressively. Creatinine came down to 2.1. She was initially on 6 L of oxygenation and went to room air 2 days before discharge. The rash that was bullous on the right forearm and arm area dried up. She did get some cold sores that were treated with Valtrex 500 mg twice a day for one day. Physical and occupation therapy were on board, and after rehab, she was found to be independent and able to return in the home setting. However, the family felt that her home was unclean, and they will keep her in the motel room until they manage to clean it up. MEDICATIONS ON DISCHARGE: She will go home on: 1. Augmentin 875 mg b.i.d. to complete 5 days. 2. Prednisone 20 mg b.i.d. also for 5 days. Other discharge medications will be: 1. Carvedilol 25 mg b.i.d. 2. Pepcid 20 mg daily. 3. Furosemide 40 mg once a day. 4. Hydralazine 25 mg b.i.d. 5. Levothyroxine 50 mcg a day. 6. Potassium chloride 40 mEq at breakfast and 20 mEq at bedtime. 7. She will go home on Zocor 40 mg at bedtime, 5 mg of Ambien p.r.n. at night. FOLLOWUP PLAN: The patient will see Rylie King CNP, next week in the office to continue managing her chronic medical problems. She did have an echocardiogram in the hospital that showed ejection fraction of 60%, however, unable to determine the diastolic function. Please note that I spent more than 35 minutes in the discharge of the patient. /[id number] ENE/CHALO
== END 2019-05-12 10:06 | disposition home or self-care (01) | DRG 190 ==
LOC: FB.ED 14:35 → FB.MS 17:05
PROVIDERS: ADMIT Emergency Medicine; ATTEND Family Medicine
DX: I21.4 Non-ST elevation (NSTEMI) myocardial infarction (principal); J18.9 Pneumonia, unspecified organism; N39.0 Urinary tract infection, site not specified; I13.0 Hypertensive heart and chronic kidney disease with heart failure and stage 1 through stage 4 chronic kidney disease, or unspecified chronic kidney disease; L03.113 Cellulitis of right upper limb; N17.9 Acute kidney failure, unspecified; Z51.5 Encounter for palliative care; I50.9 Heart failure, unspecified; J44.1 Chronic obstructive pulmonary disease with (acute) exacerbation; E11.22 Type 2 diabetes mellitus with diabetic chronic kidney disease; B96.20 Unspecified Escherichia coli [E. coli] as the cause of diseases classified elsewhere; N18.3 Chronic kidney disease, stage 3 (moderate); E03.9 Hypothyroidism, unspecified; H54.7 Unspecified visual loss; E78.00 Pure hypercholesterolemia, unspecified; Z96.611 Presence of right artificial shoulder joint; E86.0 Dehydration; E87.6 Hypokalemia; K21.9 Gastro-esophageal reflux disease without esophagitis; J45.901 Unspecified asthma with (acute) exacerbation; E66.01 Morbid (severe) obesity due to excess calories; G47.33 Obstructive sleep apnea (adult) (pediatric); D63.8 Anemia in other chronic diseases classified elsewhere; L01.03 Bullous impetigo; B00.1 Herpesviral vesicular dermatitis; M19.90 Unspecified osteoarthritis, unspecified site; M10.9 Gout, unspecified; Z98.49 Cataract extraction status, unspecified eye; Z90.49 Acquired absence of other specified parts of digestive tract; Z99.81 Dependence on supplemental oxygen; Z79.890 Hormone replacement therapy; Z68.43 Body mass index [BMI] 50.0-59.9, adult
CPT/HCPCS: 36415; 51702; 71045; 71046; 80048; 80053; 81001; 82962; 83605; 83880; 84484; 85025; 85027; 87040; 87086; 87088; 87186; 93005; 93306; 94150; 94640; 94760; 96374; 96375; 97110-GP; 97116-GP; 97161-GP; 97165-GO; 97530-GO; 97530-GP; 97535-GO; 99285-25; A9270-GY; J0456; J0696; J1650; J1940; J2930; J7030; J7050; J7620-GY